=== PATIENT | female | born 1995 | race Two or more races ===

== ENCOUNTER → 2024-05-02 | Outpatient (CLI) | payer OTHER | END | disposition home or self-care (01) | LOC: XYW 10:41 | PROVIDERS: ATTEND Nurse Practitioner Family | DX: I51.89 Other ill-defined heart diseases (principal); R42 Dizziness and giddiness | CPT/HCPCS: 93306 ==

== ENCOUNTER → 2024-05-05 | Outpatient (CLI) | payer OTHER | END | disposition home or self-care (01) | LOC: XYW 07:51 → EDUNIT# 08:00 | DX: I26.99 Other pulmonary embolism without acute cor pulmonale (principal); R06.00 Dyspnea, unspecified | CPT/HCPCS: 78582; A9540; A9558 ==

== ENCOUNTER 2024-06-13 12:48 | Emergency (ER) | payer OTHER ==
[~2024-06-13] VITALS: Ht 172.7 cm; Wt 64.9 kg
[2024-06-13 14:44] LABS: Basophils # (auto) 0 10 ^3/uL (0-0.2); Basophils % (auto) 0.3 % (0.0-2.0); Eosinophils # (auto) 0.1 10 ^3/uL (0-0.8); Hematocrit 47.3 % (36.0-46.0); Hemoglobin 16.2 g/dL (12.2-16.2); Lymphocytes # (auto) 4.5 10 ^3/uL (0.4-5.4); Lymphocytes % (auto) 45.7 % (10.0-50.0); Mean Corpuscular Hemoglobin 32.1 pg (28.0-32.0); Mean Corpuscular Hgb Conc. 34.2 g/dL (32.0-36.0); Mean Corpuscular Volume 94.1 fL (80.0-100.0); Monocytes # (auto) 0.6 10 ^3/uL (0-1.3); Monocytes % (auto) 6.1 % (0.0-12.0); Neutrophils # (auto) 4.7 10 ^3/uL (1.6-8.6); Neutrophils % (auto) 46.9 % (37.0-80.0); Nucleated Red Blood Cells % 0.1 %; Red Blood Cells 5.03 10^6/uL (4.0-5.20); Red Cell Distribution Width 13.3 % (11.8-14.3)
[2024-06-13 15:02] LABS: Alanine Aminotransferase 45 U/L (7-40); Albumin 5.4 g/dL (3.2-4.8); Alkaline Phosphatase 108 U/L (46-116); Anion Gap 7 (5-15); Aspartate Aminotransferase 22 U/L (13-40); BUN/Creatinine Ratio 12.5 (10.0-20.0); Blood Urea Nitrogen 13 mg/dL (9-23); Calcium 10.3 mg/dL (8.7-10.4); Carbon Dioxide 27 mmol/L (20-30); Chloride 106 mmol/L (98-107); Glucose 81 mg/dL (74-106); Potassium 3.5 mmol/L (3.5-5.1); Sodium 140 mmol/L (136-145)
[2024-06-13 15:03] LABS: Bilirubin, Total 0.4 mg/dL (0.2-1.0); Total Protein 8.3 g/dL (5.7-8.2)
[2024-06-13 17:20] VITALS: TEMP 99
[2024-06-13 17:22] VITALS: PULSE 125; RESP 20; O2SAT 96
[2024-06-13 18:16] LABS: Urine Bacteria FEW /hpf (None Seen); Urine Blood Negative /uL (Negative); Urine Clarity Clear (Clear); Urine Color Yellow (Yellow); Urine Mucus FEW (None Seen); Urine Protein, UAD TRACE (Negative); Urine Specific Gravity 1.029 (1.001-1.035); Urine Urobilinogen 3 mg/dL (Negative); Urine WBC 3 /hpf (0 - 5)
[2024-06-13 20:33] VITALS: BP 153/86; PULSE 102; RESP 22; O2SAT 99
== END 2024-06-13 21:30 | disposition home or self-care (01) ==
LOC: ER 12:48
DX: K59.00 Constipation, unspecified (principal); R07.9 Chest pain, unspecified; R00.2 Palpitations; F41.9 Anxiety disorder, unspecified; R53.1 Weakness; Z88.6 Allergy status to analgesic agent; Z88.8 Allergy status to other drugs, medicaments and biological substances
CPT/HCPCS: 36415; 71046; 74018; 80053; 81001; 81025; 84443; 84484; 85025; 93005

== ENCOUNTER → 2024-06-24 | Outpatient (CLI) | payer OTHER ==
[~2024-06-24] MED LIST: IOHEXOL 350 MG/ML 100ML IJ ONE
[2024-06-24 11:25] VITALS: BP 131/79; PULSE 104; RESP 18; O2SAT 100
[2024-06-24 11:52] VITALS: BP 129/84; PULSE 95; RESP 18; O2SAT 100
== END | disposition home or self-care (01) ==
LOC: Rad HDHVI 11:08
PROVIDERS: ATTEND Internal Medicine Cardiovascular Disease
DX: R91.1 Solitary pulmonary nodule (principal); M19.09 Primary osteoarthritis, other specified site
CPT/HCPCS: 71260; G0463; Q9967

== ENCOUNTER 2024-07-25 20:06 | Emergency (ER) | payer SELFPAY ==
[~2024-07-25] VITALS: Ht 170.2 cm; Wt 64.5 kg
[2024-07-25 20:27] VITALS: BP 132/93; PULSE 110; RESP 16; O2SAT 98
[2024-07-25 20:54] LABS: Urine Bacteria None Seen /hpf (None Seen)
[2024-07-25 21:14] LABS: Urine Blood TRACE /uL (Negative); Urine Clarity Turbid (Clear); Urine Color Yellow (Yellow); Urine Mucus FEW (None Seen); Urine Protein, UAD 1+ (Negative); Urine Urobilinogen 2 mg/dL (Negative); Urine WBC 3 /hpf (0 - 5); Urine pH 6.5 (5.0-9.0)
[2024-07-25 21:20] LABS: Amphetamine Screen, Urine Neg (NEGATIVE); Barbiturate Scree,Urine Neg (NEGATIVE); Benzodiazephine Screen, Urine Neg (NEGATIVE); Cocaine Screen, Urine Neg (NEGATIVE); Opiate Scree,Urine Neg (NEGATIVE)
[2024-07-25 21:21] LABS: Phencyclidine Screen, Urine Neg (NEGATIVE)
[2024-07-25 21:35] LABS: Cannabinoid Screen, Urine Pos (NEGATIVE)
[2024-07-25] MEDS ORDERED: NITR-87 PO (23:08)
[2024-07-25] MEDS ORDERED: LEVO500T91 PO (23:27)
== END 2024-07-25 23:30 | disposition home or self-care (01) ==
LOC: ER 20:06
DX: N39.0 Urinary tract infection, site not specified (principal); F12.90 Cannabis use, unspecified, uncomplicated; Z79.899 Other long term (current) drug therapy; Z88.5 Allergy status to narcotic agent; Z88.8 Allergy status to other drugs, medicaments and biological substances
CPT/HCPCS: 74176; 80307; 81001; 81025

== ENCOUNTER 2024-11-07 18:10 | Inpatient (IN) | payer OTHER ==
[~2024-11-07] VITALS: Ht 152.4 cm; Wt 66.2 kg
[~2024-11-07 18:10] MED LIST changes: -IOHEXOL 350 MG/ML 100ML IJ ONE; +LEVO500T91 PO; +NITR-87 PO
--- NOTE | 2024-11-07 20:59 | ED.PDOC ---
General HPI Comments 29-year-old female presents to ER with complaints of flank pain x1 day. Patient reports that she woke up with right flank pain and associated n/v this morning. She rates her current pain a 9/10 to right flank with radiation towards pelvis. Patient present to fast track in wheelchair in mild distress. Denies fever, body aches, chills, abdominal pain, changes in urination/bm or any further symptoms/complaints Chief Complaint: Pelvic Pain Time Seen by MD: 18:43 Primary Care Provider: Unknown Reviewed notes: Nurses Notes, Medications, Allergies Allergies: Coded Allergies: Brexpiprazole (Verified Allergy, Unknown, 06/13/24) Buspirone (Verified Allergy, Unknown, 06/13/24) Diphenhydramine (Verified Allergy, Unknown, 06/13/24) Metronidazole (Verified Allergy, Unknown, 06/13/24) Morphine (Verified Allergy, Unknown, 06/13/24) Oxcarbazepine (Verified Allergy, Unknown, 06/13/24) Oxycodone (Verified Allergy, Unknown, 06/13/24) Uncoded Allergies: ADHESIVE (Allergy, Unknown, 06/13/24) Home Meds Active Scripts Levofloxacin Hemihydrate (LEVAQUIN 500 MG) 500 Mg Tab, 500 MG PO DAILY for 7 Days, #7 TAB Prov:CATHY BLACK MD 07/25/24 Nitrofurantoin Monohydrate Mac (Macrobid) 100 Mg Cap, 100 MG PO BID, #14 CAP Prov:CATHY BLACK MD 07/25/24 Information Source: Patient Mode of Arrival: Ambulatory Past Medical History PAST MEDICAL HISTORY: PE Past Medical History (Other): DDD, Maryan-Danlos syndrome, hepatomegaly, right kidney cyst, narcolepsy, scoliosis Surgical History: Denies all surgeries LIME BOILER History: Denies all LIME BOILER Hx Family History Family History: Unknown Social History Smoker: Non-Smoker Alcohol: Denies ETOH Use Drugs: Marijuana Lives In: Home Constitutional: denies: chills, diaphoresis, fatigue, fever, malaise, sweats, weakness, others EENTM: denies: blurred vision, double vision, ear bleeding, ear discharge, ear drainage, ear pain, ear ringing, eye pain, eye redness, hearing loss, mouth pain, mouth swelling, nasal discharge, nose bleeding, nose congestion, nose pain, photophobia, tearing, throat pain, throat swelling, voice changes, others Respiratory: denies: cough, hemoptysis, orthopnea, SOB at rest, shortness of breath, SOB with excertion, stridor, wheezing, others Cardiovascular: denies: chest pain, dizzy spells, diaphoresis, Dyspnea on exertion, edema, irregular heart beat, left arm pain, lightheadedness, palpitations, PND, syncope, others Gastrointestinal: reports: others (As stated in HPI) Genitourinary: reports: others (As stated in HPI) Neurological: denies: dizziness, fainting, headache, left sided numbness, left sided weakness, numbness, paresthesia, pre-existing deficit, right sided numbness, right sided weakness, seizure, speech problems, tingling, tremors, weakness, others Musculoskeletal: denies: back pain, gout, joint pain, joint swelling, muscle pain, muscle stiffness, neck pain, others Integumetry: denies: bruises, change in color, change in hair/nails, dryness, laceration, lesions, lumps, rash, wounds, others Allergic/Immunocompromised: denies: Difficulty Healing, Frequent Infections, Hives, Itching, others Hematologic/Lymphatic: denies: anemia, blood clots, easy bleeding, easy bruising, swollen glands, others Endocrine: denies: excessive hunger, excessive sweating, excessive thirst, excessive urination, flushing, intolerance to cold, intolerance to heat, unexplained weight gain, unexplained weight loss, others Psychiatric: denies: anxiety, bipolar disorder, depression, hopeless, panic disorder, schizophrenia, sleepless, suicidal, others Physical Exam General Appearance: Mild Distress (Due to CVA tenderness on right) HEENT: PERRL/EOMI Neck: Full Range of Motion, Non-Tender, Normal Respiratory: Chest Non-Tender, Lungs Clear, No Accessory Muscle Use, No Respiratory Distress, Normal Breath Sounds Cardiovascular: No Murmur, No Gallop, Regular Rate/Rhythm Breast Exam: Deferred Gastrointestinal: Non Tender (No TTP to abdomen/pelvic region noted), No Pu lsatile Mass, Soft Genitalia: Deferred Pelvic: Deferred Rectal: Deferred Extremities: Normal capillary refill, Normal range of motion Musculoskeletal : Extremity Location: Back (+ CVA tenderness on right) Neurologic: Alert, software asset management analyst II-XII nml as Tested, No Motor Deficits, Normal Affect, Normal Mood, No Sensory Deficits Cerebellar Function: Normal Reflexes: Normal Skin: Dry, Normal Color, Warm Peripheral Pulses: 2+ Radial (R), 2+ Radial (L), 2+ Brachial (R), 2+ Brachial (L) Lymphatic: No Adenopathy Was a procedure done? Was a procedure done?: No Sedation Sedation?: No Differential Diagnosis Kidney stone (Female): N/A Urinary Problem (Female): PID, Urinary retention, Urolithiasis, Other (Urosepsis) X-Ray, Labs, Meds, VS Vital Signs Date Time Temp Pulse Resp B/P (MAP) Pulse Ox O2 Delivery O2 Flow Rate FiO2 11/07/24 23:20 98.1 67 16 106/67 (80) 99 98.1 11/07/24 20:48 98.8 116 18 142/97 (112) 99 98.8 11/07/24 20:48 116 18 99 Room Air 11/07/24 18:30 98.2 130 18 160/93 (115) 97 Lab Test 11/07/24 23:35 11/07/24 21:34 11/07/24 21:12 11/07/24 20:54 Range/Units Lactic Acid Level 1.5 2.3 *H 0.4-2.0 mmol/L Urine Color Yellow Yellow Urine Clarity Turbid H Clear Urine pH 6.0 5.0-9.0 Urine Specific [place] 1.020 1.001-1.035 Urine Protein 1+ H Negative Urine Ketones 1+ H Negative Urine Blood Trace H Negative /uL Urine Nitrite Negative Negative Urine Bilirubin Negative Negative Urine Urobilinogen Normal Negative mg/dL Urine Leukocyte Esterase 1+ Negative /uL Urine RBC 11 0 - 4 /hpf Urine WBC 4 0 - 5 /hpf Urine Squamous Epithelial Cells Few <5 /hpf Urine Bacteria Few H None Seen /hpf Urine Hyaline Casts Few 0 - 2 /lpf Urine Mucus Few None Seen Urine Glucose Normal Normal mg/dL Urine Test Negative Negative White Blood Count 17.3 H 4.4-10.8 10^3/uL Red Blood Count 5.23 H 4.0-5.20 10^6/uL Hemoglobin 16.9 H 12.2-16.2 g/dL Hematocrit 50.3 H 36.0-46.0 % Mean Corpuscular Volume 96.3 80.0-100.0 fL Mean Corpuscular Hemoglobin 32.3 H 28.0-32.0 pg Mean Corpuscular Hemoglobin Concent 33.5 32.0-36.0 g/dL Red Cell Distribution Width 13.3 11.8-14.3 % Platelet Count 312 140-450 10^3/uL Mean Platelet Volume 7.6 6.9-10.8 fL Neutrophils (%) (Auto) 93.3 H 37.0-80.0 % Lymphocytes (%) (Auto) 3.9 L 10.0-50.0 % Monocytes (%) (Auto) 2.7 0.0-12.0 % Eosinophils (%) (Auto) 0.0 0.0-7.0 % Basophils (%) (Auto) 0.1 0.0-2.0 % Neutrophils # (Auto) 16.1 H 1.6-8.6 10 ^3/uL Lymphocytes # (Auto) 0.7 0.4-5.4 10 ^3/uL Monocytes # (Auto) 0.5 0-1.3 10 ^3/uL Eosinophils # (Auto) 0 0-0.8 10 ^3/uL Basophils # (Auto) 0 0-0.2 10 ^3/uL Nucleated Red Blood Cells 0.3 % Sodium Level 142 136-145 mmol/L Potassium Level 4.1 3.5-5.1 mmol/L Chloride Level 108 H 98-107 mmol/L Carbon Dioxide Level 25 20-31 mmol/L Anion Gap 9 5-15 Blood Urea Nitrogen 9 9-23 mg/dL Creatinine 1.06 H 0.550-1.02 mg/dL Glomerular Filtration Rate Calc 73 >90 mL/min BUN/Creatinine Ratio 8.5 L 10.0-20.0 Serum Glucose 101 74-106 mg/dL Calcium Level 10.2 8.7-10.4 mg/dL Current Medications Medications (Trade) Dose Ordered Sig/Stuart Route Start Time Stop Time Status Last Admin Metoclopramide HCl (Reglan Injection) 10 mg ONCE ONCE IM 11/07/24 21:00 11/07/24 21:01 DC 11/07/24 21:09 Acetaminophen/ Codeine Phosphate (Tylenol W/Cod #3 Tablet) 1 tab ONCE ONCE PO 11/07/24 21:00 11/07/24 21:01 DC 11/07/24 21:09 Sodium Chloride 1,000 ml @ 1,000 mls/hr Q1H ONCE IV 11/07/24 21:30 11/07/24 22:29 DC 11/07/24 21:33 Ceftriaxone Sodium (Rocephin) 1,000 mg ONCE ONCE IM 11/07/24 21:45 11/07/24 21:46 DC 11/07/24 22:04 Sodium Chloride 1,000 ml @ 1,000 mls/hr Q1H ONCE IV 11/07/24 22:30 11/07/24 23:29 DC 11/07/24 22:38 PATIENT: IZA BAILEY ACCT: [id number] UNIT: [id number] : 1995 LOC: ER ROOM / BED: / AGE / SEX: 29 / F ADM STATUS: REG ER SERVICE 23 ORDERING PHYSICIAN: YAW BROWN PROCEDURE(s): ABPL - CT AB PEL WO CON-NO ORAL OR IV REASON: right flank pain ORDER NUMBER(s): [id number], ACCESSION NUMBER(s): [id number] CLINICAL HISTORY: right flank pain TECHNIQUE: CT of the abdomen and pelvis was performed without intravenous contrast. This exam was performed according to our departmental dose optimization program. Up-to-date CT equipment and radiation dose reduction techniques are utilized as appropriate. [Radimetrics Exposure Report] CTDI: [CTDIvol] DLP: 305.57 WID: COMPARISON: CT CT AB PEL WO CON-NO ORAL OR IV on DOS: 07/25/24 FINDINGS: Lower Thorax: Unchanged sub 5 mm nodule in the right lower lobe on series 3, image 22 lung bases otherwise clear. Normal-sized heart. Liver and Biliary system: Unremarkable. Spleen: Unremarkable. Adrenal Glands and Kidneys: Unremarkable. Pancreas and Retroperitoneum: Unremarkable. Aorta and Major Vessels: Unremarkable. Bowel, Mesentery and Peritoneal space: Normal caliber small and large bowel. Normal appendix. No free air or fluid collection. Mild wall thickening of the large bowel although underdistended. Pelvis: Unremarkable. Abdominal wall and Osseous Structures: No destructive osseous lesion. IMPRESSION: 1. Mild wall thickening of the large bowel which may be in part due to underdistention versus infectious or inflammatory colitis. 2. Unchanged sub 5 mm nodule in the right lower lobe which may be postinfectious or inflammatory ATED BY: CRISTIANO BIHSOP MD DICTATED DATE/TIME: 11/07/242305 SIGNED BY: CRISTIANO BISHOP MD SIGNED DATE/TIME: 11/07/242305 CC: CBC reviewed - WBC 17.3 BMP reviewed without any significant abnormalities Urinalysis reviewed-urine leukocyte esterase 1+, urine blood trace, urine nitrites negative Urine reviewed-negative Hep-Lock IV ordered Reglan 10 mg IM ordered Tylenol # 3 one tablet p.o. ordered Rocephin 1 g IV ordered NS 1 Liter IV ordered NS [address] abdomen/pelvis without contrast reviewed Previous charts reviewed Lactic acid 2.3 reviewed Repeat lactic acid ordered Patient admitted to hospitalist for pyelonephritis and need for IV antibiotics Images Reviewed?: Images reviewed and evaluated by me Time of 1ST Reevaluation: 20:52 Reevaluation 1ST: N/A Patient Education/Counseling: Diagnosis, Treatment, Prognosis, Need For Follow Up Family Education/Counseling: No Family Present Departure 1 Departure Time of Disposition: 23:42 Impression: Primary Impression: Pyelonephritis Additional Impression: Colitis Disposition: 09 ADMITTED INPATIENT Condition: Stable Critical Care Note Critical Care Time?: No Stability Stability form required: No Heart Score Heart Score: Heart Score Response (Comments) Value History N/A 0 EKG N/A 0 Age N/A 0 Risk Factors N/A 0 Troponin N/A 0 Total 0 YAW BROWN Nov 07, 2024 20:59
[2024-11-07] MEDS: ACETAMINOPHEN/CODEINE#3 (300/30mg) TAB PO ONE (21:09)
[2024-11-07] MEDS: METOCLOPRAMIDE HCL 5MG/ml INJ 2ml VIAL IM ONE (21:09)
[2024-11-07 21:12] LABS: Basophils # (auto) 0 10 ^3/uL (0-0.2); Basophils % (auto) 0.1 % (0.0-2.0); Eosinophils # (auto) 0 10 ^3/uL (0-0.8); Hematocrit 50.3 % (36.0-46.0); Hemoglobin 16.9 g/dL (12.2-16.2); Lymphocytes # (auto) 0.7 10 ^3/uL (0.4-5.4); Lymphocytes % (auto) 3.9 % (10.0-50.0); Mean Corpuscular Hemoglobin 32.3 pg (28.0-32.0); Mean Corpuscular Hgb Conc. 33.5 g/dL (32.0-36.0); Mean Corpuscular Volume 96.3 fL (80.0-100.0); Monocytes # (auto) 0.5 10 ^3/uL (0-1.3); Monocytes % (auto) 2.7 % (0.0-12.0); Neutrophils # (auto) 16.1 10 ^3/uL (1.6-8.6); Neutrophils % (auto) 93.3 % (37.0-80.0); Nucleated Red Blood Cells % 0.3 %; Platelet Count (auto) 312 10^3/uL (140-450); Red Blood Cells 5.23 10^6/uL (4.0-5.20); Red Cell Distribution Width 13.3 % (11.8-14.3); White Blood Cell 17.3 10^3/uL (4.4-10.8)
[2024-11-07 21:16] LABS: Potassium 4.1 mmol/L (3.5-5.1); Sodium 142 mmol/L (136-145)
[2024-11-07 21:17] LABS: Anion Gap 9 (5-15); Calcium 10.2 mg/dL (8.7-10.4); Carbon Dioxide 25 mmol/L (20-31)
[2024-11-07 21:20] LABS: Urine Bacteria FEW /hpf (None Seen); Urine Blood TRACE /uL (Negative); Urine Clarity Turbid (Clear); Urine Color Yellow (Yellow); Urine Hyaline Cast FEW /lpf (0 - 2); Urine Mucus FEW (None Seen); Urine Protein, UAD 1+ (Negative); Urine Squamous Epithelial Cell FEW /hpf (<5); Urine Urobilinogen Normal (Negative); Urine WBC 4 /hpf (0 - 5)
[2024-11-07 21:22] LABS: BUN/Creatinine Ratio 8.5 (10.0-20.0); Glucose 101 mg/dL (74-106)
[2024-11-07 21:25] LABS: Blood Urea Nitrogen 9 mg/dL (9-23); Chloride 108 mmol/L (98-107)
[2024-11-07] MEDS: SODIUM CHLORIDE 0.9% 1,000 ML IV ONE ×2 (21:33→22:38)
[2024-11-07] MEDS: cefTRIAXone SOD 1,000 MG VL IM ONE (22:04)
[2024-11-07 22:06] LABS: Lactic Acid w/Reflex 2.3 mmol/L (0.4-2.0)
--- NOTE | 2024-11-07 23:09 | DVH ---
CLINICAL HISTORY: right flank pain TECHNIQUE: CT of the abdomen and pelvis was performed without intravenous contrast. This exam was per formed according to our departmental dose optimization program. Up-to-date CT equipment and radiation dose reduction techniques are utilized as appropriate. [Radimetrics Exposure Report] CTDI: [CTDIvol] DLP: 305.57 WID: COMPARISON: CT CT AB PEL WO CON-NO ORAL OR IV on DOS: 07/25/24 FINDINGS: Lower Thorax: Unchanged sub 5 mm nodule in the right lower lobe on series 3, image 22 lung bases othe rwise clear. Normal-sized heart. Liver and Biliary system: Unremarkable. Spleen: Unremarkable. Adrenal Glands and Kidneys: Unremarkable. Pancreas and Retroperitoneum: Unremarkable. Aorta and Major Vessels: Unremarkable. Bowel, Mesentery and Peritoneal space: Normal caliber small and large bowel. Normal appendix. No sushant e air or fluid collection. Mild wall thickening of the large bowel although underdistended. Pelvis: Unremarkable. Abdominal wall and Osseous Structures: No destructive osseous lesion. IMPRESSION: 1. Mild wall thickening of the large bowel which may be in part due to underdistention versus infecti ous or inflammatory colitis. 2. Unchanged sub 5 mm nodule in the right lower lobe which may be postinfectious or inflammatory
[2024-11-08] VITALS (7 sets, daily range): BP systolic 109–159; BP diastolic 76–105; PULSE 68–102; RESP 12–19; TEMP 98.5–99.6; O2SAT 96–98
--- NOTE | 2024-11-08 02:00 | DVHHPRES ---
History of Present Illness Resident Creating Document: JUSTINO CONRADED RESIDENT History of Present Illness Patient is a 29-year-old female with a past medical history as described below came to the ED with a chief complaint of right-sided pain which started earlier this morning. Patient reported that she was apparently well 3-4 days ago when she started having diarrhea with the multiple episodes of loose watery stools, brown-orangish in color no blood,had mild abdominal pain in the right lower quadrant, no associated fever, chills, recent antibiotic use, eating out of the normal. Patient reports that yesterday morning she woke up with severe right- sided hip which worsened throughout the day and in the evening it got to the point where she felt that she was to faint because of severe pain and since then has been having some difficulty with balance and walking. Patient denied recent weight loss, fevers, night sweats. Since the evening after 5:00 p.m. she has nausea with 2-3 episodes vomiting frothy yellow, no blood in vomitus. 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 Family History: Marfan syndrome in father Home medications: Eliquis 5 mg b.i.d., guanfacine, progesterone, nurtec Review of Systems Review of Systems Patient seen and examined at bedside Reports mild right hip pain. Denies current nausea, vomiting, diarrhea, abdominal pain. Reports that her last bowel movement was at noon. Has some difficulty with the balance on walking Allergies: Coded Allergies: Brexpiprazole (Verified Allergy, Unknown, 06/13/24) Buspirone (Verified Allergy, Unknown, 06/13/24) Diphenhydramine (Verified Allergy, Unknown, 06/13/24) Metronidazole (Verified Allergy, Unknown, 06/13/24) Morphine (Verified Allergy, Unknown, 06/13/24) Oxcarbazepine (Verified Allergy, Unknown, 06/13/24) Oxycodone (Verified Allergy, Unknown, 06/13/24) Uncoded Allergies: ADHESIVE (Allergy, Unknown, 06/13/24) Medications Current Medications Medications Dose Ordered Sig/Stuart Route Start Time Stop Time Status Last Admin Dose Admin Piperacillin Sod/ Tazobactam Sod 100 ml @ 25 mls/hr Q8HR IV 11/08/24 06:00 Ondansetron HCl 4 mg Q4HPRN PRN IV 11/08/24 01:15 Acetaminophen/ Codeine Phosphate 1 tab Q6HP PRN PO 11/08/24 01:15 Exam Vital Signs Vital Signs Date Time Temp Pulse Resp B/P (MAP) Pulse Ox O2 Delivery O2 Flow Rate FiO2 11/07/24 23:20 98.1 67 16 106/67 (80) 99 98.1 11/07/24 20:48 Room Air Exam Physical Examination Constitutional: Patient sitting comfortably in bed without any acute distress Gen - no pallor, no icterus, no cyanosis, no clubbing, no LAD, no edema . Skin - Patients skin is warm and dry. HEENT - normocephalic, atraumatic, dry mucous membranes. Neck - full ROM, no LAD, no JVD Pulmonary - B/L vesicular breath sounds. no crackles , no wheezing, no stridor. cardiovascular - normal S1,S2 heard. no murmurs heard. peripheral pulses radial 2+, pedal 2+. capillary refill normal <2 secs. GI - soft abdomen with tenderness to palpation in the right and the left lower quadrants. no hepatospleenomegaly. Bowel sounds normoactive Extremities: Bilateral lower extremity strength 5/5, bilateral upper extremity strength 5/5, hyperextensible thumbs and hands Neurological - Patient is A/O X 3, no facial droop, normal speech, no tremor, no sensory deficiets. Labs/Xrays Labs Test 11/07/24 23:35 11/07/24 21:12 11/07/24 20:54 Range/Units Lactic Acid Level 1.5 0.4-2.0 mmol/L Urine Color Yellow Yellow Urine Clarity Turbid H Clear Urine pH 6.0 5.0-9.0 Urine Specific [place] 1.020 1.001-1.035 Urine Protein 1+ H Negative Urine Ketones 1+ H Negative Urine Blood Trace H Negative /uL Urine Nitrite Negative Negative Urine Bilirubin Negative Negative Urine Urobilinogen Normal Negative mg/dL Urine Leukocyte Esterase 1+ Negative /uL Urine RBC 11 0 - 4 /hpf Urine WBC 4 0 - 5 /hpf Urine Squamous Epithelial Cells Few <5 /hpf Urine Bacteria Few H None Seen /hpf Urine Hyaline Casts Few 0 - 2 /lpf Urine Mucus Few None Seen Urine Glucose Normal Normal mg/dL Urine Test Negative Negative White Blood Count 17.3 H 4.4-10.8 10^3/uL Red Blood Count 5.23 H 4.0-5.20 10^6/uL Hemoglobin 16.9 H 12.2-16.2 g/dL Hematocrit 50.3 H 36.0-46.0 % Mean Corpuscular Volume 96.3 80.0-100.0 fL Mean Corpuscular Hemoglobin 32.3 H 28.0-32.0 pg Mean Corpuscular Hemoglobin Concent 33.5 32.0-36.0 g/dL Red Cell Distribution Width 13.3 11.8-14.3 % Platelet Count 312 140-450 10^3/uL Mean Platelet Volume 7.6 6.9-10.8 fL Neutrophils (%) (Auto) 93.3 H 37.0-80.0 % Lymphocytes (%) (Auto) 3.9 L 10.0-50.0 % Monocytes (%) (Auto) 2.7 0.0-12.0 % Eosinophils (%) (Auto) 0.0 0.0-7.0 % Basophils (%) (Auto) 0.1 0.0-2.0 % Neutrophils # (Auto) 16.1 H 1.6-8.6 10 ^3/uL Lymphocytes # (Auto) 0.7 0.4-5.4 10 ^3/uL Monocytes # (Auto) 0.5 0-1.3 10 ^3/uL Eosinophils # (Auto) 0 0-0.8 10 ^3/uL Basophils # (Auto) 0 0-0.2 10 ^3/uL Nucleated Red Blood Cells 0.3 % Sodium Level 142 136-145 mmol/L Potassium Level 4.1 3.5-5.1 mmol/L Chloride Level 108 H 98-107 mmol/L Carbon Dioxide Level 25 20-31 mmol/L Anion Gap 9 5-15 Blood Urea Nitrogen 9 9-23 mg/dL Creatinine 1.06 H 0.550-1.02 mg/dL Glomerular Filtration Rate Calc 73 >90 mL/min BUN/Creatinine Ratio 8.5 L 10.0-20.0 Serum Glucose 101 74-106 mg/dL Calcium Level 10.2 8.7-10.4 mg/dL Assessment/Plan Assessment/Plan Assessment # Sepsis likely due to colitis # SIRS positive # acute colitis likely infectious # UTI likely acute cystitis # H/o IBS # h/o osteoarthritis, degenerative disc disease # h/o Maryan-Danlos syndrome, pelvic floor dysfunction with stress urinary incon tinence # h/o PE (august 2023) Plan - CT abdomen pelvis without contrast shows mild thickening of the large bowel wall - elevated WBC count 17.3 with a left shift - lactic acid 2.3, trending down - UA shows LE 1+, few bacteria - stool WBC, cultures, occult blood pending - blood culture pending - urine culture pending - patient given IV fluids 2 L NS bolus, on 150 mL/hour NS - given ceftriaxone 1 g IV - on Zosyn 3.375 g q.8 hours ( patient is allergic to metronidazole) - Eliquis 5 mg b.i.d. - Zofran p.r.n. for nausea - acetaminophen/codeine p.r.n. for pain Goals of care discussed with the patient for over 25 minutes. Full code Plan discussed with Dr. García Plan discussed with: Patient My Orders Orders - DARLENE CONRAD RESIDENT Procedure Category Date Status Time Admit ADMIT 11/08/24 Transmitted 01:02 Stat Ekg For Chest JOSE 11/08/24 In Process Pain 01:02 Emergency Dysrhythmia JOSE 11/08/24 In Process Protocol 01:02 Comprehensive LAB 11/08/24 Logged Metabolic Panel 01:04 Basic Metabolic Panel LAB 11/08/24 Logged 04:00 Complete Blood Count LAB 11/08/24 Logged 04:00 Stool Occult Blood LAB 11/08/24 Logged 01:04 Stool Bacterial SHIVA 11/08/24 Logged Culture 01:04 Stool Wbc LAB 11/08/24 Logged 01:04 Urine Bacterial SHIVA 11/08/24 In Process Culture 01:04 Chest Xray 1 View XY 11/08/24 Logged 01:04 Sodium Chloride 0.9% PHA 11/08/24 In Process 01:15 Piperacillin-Tazob PHA 11/08/24 In Process 3.375gm (Zosyn 3.375g 06:00 Ondansetron Hcl PHA 11/08/24 In Process (Zofran) 01:15 Acetaminophen/Codeine PHA 11/08/24 In Process Tablet (Tylenol W/ 01:15 Covid19 Antigen [facility] 11/08/24 Logged Rapid Influenza A&B LAB 11/08/24 Logged 01:04 Code Status CODE 11/08/24 Transmitted 01:33 Date of Service: Nov 08, 2024 Billing Provider: MAX GARCÍA MD Common Visit Codes: [id number] INP/OBS CARE (HIGH) Secondary Visit Codes: 01167-[id number] CARE PLAN 30 MINUTES DARLENE CONRAD RESIDENT Nov 08, 2024 02:00 MAX GARCÍA MD Nov 08, 2024 17:22
[2024-11-08 02:25] LABS: Phencyclidine Screen, Urine Neg (NEGATIVE)
[2024-11-08 02:39] LABS: Amphetamine Screen, Urine Neg (NEGATIVE); Barbiturate Scree,Urine Neg (NEGATIVE); Benzodiazephine Screen, Urine Neg (NEGATIVE); Cannabinoid Screen, Urine Pos (NEGATIVE); Cocaine Screen, Urine Neg (NEGATIVE); Opiate Scree,Urine Neg (NEGATIVE)
[2024-11-08 02:49] LABS: Alanine Aminotransferase 76 U/L (7-40); Albumin 4.2 g/dL (3.2-4.8); Alkaline Phosphatase 82 U/L (46-116); Anion Gap 8 (5-15); Aspartate Aminotransferase 38 U/L (13-40); BUN/Creatinine Ratio 10.1 (10.0-20.0); Bilirubin, Total 0.4 mg/dL (0.2-1.0); Blood Urea Nitrogen 7 mg/dL (9-23); Calcium 8.6 mg/dL (8.7-10.4); Carbon Dioxide 23 mmol/L (20-31); Chloride 110 mmol/L (98-107); Glucose 88 mg/dL (74-106); Sodium 141 mmol/L (136-145); Total Protein 6.4 g/dL (5.7-8.2)
[2024-11-08 03:35] LABS: Potassium 3.7 mmol/L (3.5-5.1); Sodium 140 mmol/L (136-145)
[2024-11-08 03:36] LABS: Anion Gap 6 (5-15); Carbon Dioxide 23 mmol/L (20-31)
[2024-11-08 03:41] LABS: BUN/Creatinine Ratio 7.2 (10.0-20.0); Glucose 79 mg/dL (74-106)
[2024-11-08 03:47] LABS: Blood Urea Nitrogen 6 mg/dL (9-23); Calcium 8.5 mg/dL (8.7-10.4); Chloride 111 mmol/L (98-107)
[2024-11-08 04:22] LABS: Basophils # (auto) 0 10 ^3/uL (0-0.2); Basophils % (auto) 0.1 % (0.0-2.0); Eosinophils # (auto) 0 10 ^3/uL (0-0.8); Hematocrit 39.7 % (36.0-46.0); Hemoglobin 13.5 g/dL (12.2-16.2); Lymphocytes # (auto) 0.9 10 ^3/uL (0.4-5.4); Lymphocytes % (auto) 11.7 % (10.0-50.0); Mean Corpuscular Hemoglobin 32.8 pg (28.0-32.0); Mean Corpuscular Hgb Conc. 33.9 g/dL (32.0-36.0); Mean Corpuscular Volume 96.6 fL (80.0-100.0); Monocytes # (auto) 0.1 10 ^3/uL (0-1.3); Monocytes % (auto) 1.9 % (0.0-12.0); Neutrophils # (auto) 6.6 10 ^3/uL (1.6-8.6); Neutrophils % (auto) 86.3 % (37.0-80.0); Nucleated Red Blood Cells % 0.1 %; Platelet Count (auto) 258 10^3/uL (140-450); Red Blood Cells 4.11 10^6/uL (4.0-5.20); Red Cell Distribution Width 13.2 % (11.8-14.3); White Blood Cell 7.6 10^3/uL (4.4-10.8)
[2024-11-08] MEDS: SODIUM CHLORIDE 0.9% 1,000 ML IV ONE (05:26)
[2024-11-08] MEDS: ACETAMINOPHEN/CODEINE#3 (300/30mg) TAB PO PRN (05:29)
[2024-11-08] MEDS: PIPERACILLIN-TAZOB 3.375GM 100 ML IV SCH (05:45)
--- NOTE | 2024-11-08 06:15 | DVH ---
CHEST RADIOGRAPH Indication: SOB Technique: Single frontal view of the chest was obtained Comparison: None FINDINGS: Lines and Tubes: None Lungs: No focal consolidation. Pleura: No effusion. No pneumothorax. Cardiomediastinal contours: Unremarkable Bones: No acute osseous abnormality. IMPRESSION: 1. No acute cardiopulmonary disease.
[2024-11-08 07:26] LABS: Rapid Influenza A Negative (Negative); Rapid Influenza B Negative (Negative)
[2024-11-08 07:27] LABS: COVID19 ANTIGEN SOFIA FIA NEGATIVE (NEGATIVE)
[2024-11-08] MEDS: APIXABAN 5 MG TAB PO SCH (09:15)
[2024-11-08] MEDS ORDERED: RIME75TA PO (11:58)
--- NOTE | 2024-11-08 12:12 | DVHPNRES ---
Progress Note Date Seen: Nov 08, 2024 Resident Creating Document: WILMER DUARTE Has the PT tested + for MRSA If YES, has PT been informed?: No Medical Necessity Reason Pt with a Central, PICC or Fol: No Subjective Review of Systems The patient is a 29-year-old female with a past medical history as described below. She came to the ED with a chief complaint of right-sided pain that started earlier this morning. The patient reported that she was apparently well 3-4 days ago when she started having diarrhea with multiple episodes of loose, watery stools, brown-orangish in color, without blood. She had mild abdominal pain in the right lower quadrant, with no associated fever, chills, recent antibiotic use, or eating out of the ordinary. The patient reports that yesterday morning she woke up with severe right-sided hip pain, which worsened throughout the day. By the evening, the pain was so severe that she felt faint, and since then, she has had some difficulty with balance and walking. The patient denied recent weight loss, fevers, or night sweats. Since the evening after 5:00 p.m., she has had nausea with 2-3 episodes of frothy yellow vomiting, without blood in the vomitus. 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 Home medication: Eliquis 5 mg b.i.d., guanfacine, progesterone, nurtec Allergic history: Adhesive, Buspirone, diphenhydramine, metronidazole, morphine, oxcarbazepine, oxycodone Today, patient seen and examined at the bedside. Patient is feeling better since admission. Patient is no vomiting at the moment. Patient reports: No new complaints, Feels better Changes from previous H/P or p: No Changes Objective vital signs Vital Sign Date Time Temp Pulse Resp B/P (MAP) Pulse Ox O2 Delivery O2 Flow Rate FiO2 11/08/24 10:25 98.9 75 16 126/76 (93) 98 98.9 11/08/24 07:30 Room Air* 0 21 Total Intake and Output 11/07/24 11/07/24 11/08/24 15:00 23:00 07:00 Intake Total 1000 ml 1175 ml Balance 1000 ml 1175 ml medications Current Medications Medications Dose Ordered Sig/Stuart Route Start Time Stop Time Status Last Admin Dose Admin Piperacillin Sod/ Tazobactam Sod 100 ml @ 25 mls/hr Q8HR IV 11/08/24 06:00 11/08/24 05:45 25 MLS/HR Ondansetron HCl 4 mg Q4HPRN PRN IV 11/08/24 01:15 Acetaminophen/ Codeine Phosphate 1 tab Q6HP PRN PO 11/08/24 01:15 11/08/24 05:29 1 TAB Apixaban 5 mg BID PO 11/08/24 10:00 11/08/24 09:15 5 MG Examination General Appearance: Alert, Oriented X3, Cooperative, No acute distress HEENT: Atraumatic, PERRLA, EOMI, Mucous membrane moist/pink Respiratory: Clear to auscultation, Normal air movement Cardiovascular: Regular rate, Normal S1, Normal S2, No murmurs, no chest wall tenderness Abdominal: Normal bowel sounds, Soft, No tenderness, No hepatospenomegaly, No masses Extremities: Hypermobile joints Skin: Hyperextensible skin Neuro: Normal gait, Normal speech, Strength at 5/5 X4 ext, Normal tone, Sensation intact, Cranial nerves 3-12 NL, Reflexes 2+ Psych/Mental Status: Mental status NL, Mood NL laboratory and microbiology Laboratory Tests 11/08/24 03:10 Test 11/08/24 03:10 Range/Units Serum Glucose 79 74-106 mg/dL Labs and/or images reviewed: Labs reviewed by me, Image(s) reviewed by me Problem List/Assessment/Plan Problem List/Assessment/Plan # sepsis, likely due to colitis/UTI # Acute colitis, likely due to bacteria/viral Abdominal CT scan, shows mild wall thickening of the large bowel which may be in part due to underdistention versus infectious or inflammatory colitis Check stool culture, stool WBC WBCs raised at 7:20 a.m. 0.3, lactic acid is 2.3 Injection ceftriaxone IV fluid #Syncope, likely orthostatic patent lost consciousness for few second and regained full consciousness upon waking up Echo # UTI, unspecified location Urinalysis shows UTI picture Urine culture Injection ceftriaxone #Pulmonary nodule CT scan shows, unchanged sub 5 mm nodule in the right lower lobe which may be postinfectious or inflammatory Outpatient follow up #Hyperkalemia, monitoring #Has history of Maryan-Danlos syndrome #Has a history of irritable bowel syndrome #Has history of degenerative disc disorder and osteoarthritis of low back and neck, continue neurotic #Has history of stress urinary continence, and pelvic floor dysfunction #Dysmenorrhea, continue progesterone #History of migraine, and ADH , #History of OCD, #History of pulmonary embolism, on September 04, 2023, continue Eliquis 5 mg b.i.d. DIET: Clear liquid diet DVT PROPHYLAXIS: Patient is on Eliquis GI PROPHYLAXIS:: Protonix is not indicated BOWEL REGIMEN: Patient has diarrhea, no indication for the laxative CODE STATUS: Code status discussed for more than 20 minutes, full code DISPOSITION: Med surge Patient's status discussed with patient. Case discussed with Dr. Ignacio. Plan discussed with: Patient, Other (RN) Date of Service: Nov 08, 2024 Billing Provider: MAX IGNACIO MD Common Visit Codes: [id number] INP/OBS CARE(HIGH) WILMER DUARTE RESDIDEMI Nov 08, 2024 12:12 MAX IGNACIO MD Nov 08, 2024 17:27
[2024-11-08] MEDS: ALPRAZolam 0.5 MG TAB PO PRN (16:05)
[2024-11-08] MEDS: PHENAZOPYRIDINE HCL 100 MG TAB PO ONE (16:23)
[2024-11-08 17:03] LABS: Free T3 3.22 pg/mL (2.3-4.2); Free T4 (Free Thyroxine) 1.26 ng/dL (0.89-1.76)
[2024-11-08] MEDS ORDERED: FLUV100T15 PO (19:36)
[2024-11-08] MEDS ORDERED: GUAN1TAB23 PO (19:38)
[2024-11-09] VITALS (8 sets, daily range): BP systolic 113–165; BP diastolic 73–110; PULSE 65–107; RESP 18–20; TEMP 97.9–98.4; O2SAT 96–100
[2024-11-09] MEDS ORDERED: KETOROLAC TROMETH 30 MG/ML 1ML VIAL IV ONE (00:45)
[2024-11-09] MEDS ORDERED: PATIENTS OWN MEDICATION PO SCH ×4 (00:45→18:00)
[2024-11-09] MEDS ORDERED: FLUVOXAMINE 100 MG PO SCH ×2 (01:00→10:00)
[2024-11-09] MEDS ORDERED: GUANFACINE HCL 4 MG PO SCH ×2 (01:00→10:00)
[2024-11-09] MEDS: HYDROmorphone HCL 2 MG/ML VL/or syr IV ONE (01:30)
[2024-11-09] MEDS ORDERED: MORPHINE SULFATE INJ 2 MG/ml SYRG IV PRN (07:00)
[2024-11-09] MEDS ORDERED: HYDROcodone-ACET 5/325MG TAB PO PRN ×2 (07:00)
[2024-11-09 07:03] LABS: Anion Gap 9 (5-15); Carbon Dioxide 24 mmol/L (20-31); Sodium 143 mmol/L (136-145)
[2024-11-09 07:05] LABS: Calcium 9.5 mg/dL (8.7-10.4)
[2024-11-09 07:09] LABS: BUN/Creatinine Ratio 5.6 (10.0-20.0); Glucose 90 mg/dL (74-106)
[2024-11-09 07:10] LABS: Blood Urea Nitrogen 6 mg/dL (9-23); Chloride 110 mmol/L (98-107)
--- NOTE | 2024-11-09 08:28 | DVHINCON2 ---
REASON FOR CONSULTATION: Pelvic pain. HISTORY OF PRESENT ILLNESS: The patient is a 29-year-old 0, para 0 female admitted for flank pain, nausea, vomiting. The patient has a history of PE. The patient states she is on control pills to regulate her periods. She has no period according to her. She is not sexually active, according to the patient. Her CT is negative. At the time of this consultation, the patient had a migraine headache and did not want to be examined. PAST MEDICAL HISTORY: ADHD, right kidney cyst, scoliosis, narcolepsy, degenerative disk disease, IBS, Maryan-Danlos syndrome and PE. PAST SURGICAL HISTORY: None. FAMILY HISTORY: None. REVIEW OF SYSTEMS: CONSTITUTIONAL: Denies chills, diaphoresis, fever. RESPIRATORY: Denies cough, hemoptysis. CARDIOVASCULAR: Denies chest pain, dizzy spell. NEUROLOGICAL: Denies dizziness. GASTROINTESTINAL: Positive for abdominal pain, nausea, vomiting, diarrhea. GENITOURINARY: No dysuria, no vaginal bleeding. MUSCULOSKELETAL: Denies back pain. ENDOCRINE: Denies excessive hunger or sweating. PSYCHIATRIC: Denies anxiety, bipolar. PHYSICAL EXAMINATION: VITAL SIGNS: Stable, afebrile. The patient is refusing any examination. She did not want to cooperate much during her history. IMPRESSION: Pelvic pain. In view of normal CT, I do not recommend any further intervention. PLAN: I have advised the patient to follow up on an outpatient basis. The patient agreed. We will sign off. Thank you very much for this consultation. Dina Hodges DO MZ/SAY TID: [id number] RECEIPT: [id number]
[2024-11-09] MEDS ORDERED: cefTRIAXone 1GM/50ML D5W 50 ML IV SCH (09:00)
[2024-11-09] MEDS: PHENAZOPYRIDINE HCL 100 MG TAB PO SCH (09:18)
[2024-11-09] MEDS ORDERED: KETOROLAC TROMETH 30 MG/ML 1ML VIAL IV PRN (10:00)
[2024-11-09] MEDS ORDERED: HYDROmorphone HCL 2 MG TAB PO PRN (10:15)
[2024-11-09] MEDS: FLUVOXAMINE 100 MG PO SCH ×2 (11:00→18:23)
--- NOTE | 2024-11-09 11:25 | DVHSR ---
APPROVED REPORT EXAM: Two-dimensional and M-mode echocardiogram with Doppler and color Doppler. Blood Pressure: 126/76 mmHg INDICATION echo RISK FACTORS Height: 5'0, Weight: 138 DIMENSIONS LVDd4.0 (3.8-5.7cm)LA (2D)3.8 (1.9-4.0cm)Aortic Root2.0 (2.0-3.7cm) LVDs2.7 (2.5-4.0cm)LA (MM) (1.9-4.0cm)Aortic Cusp Exc1.8 (1.5-2.0cm) EF (%) 60.0 (55-70%)Rt. Atrium2.8 (1.9-4.0cm)Asc. Aorta2.7 cm IVSd0.8 (0.7-1.1cm)RV (D) (1.8-2.4cm) PWd0.9 (0.7-1.1cm) Mitral Valve MitralMitral Stenosis E wave0.82m/sMV Mean GR.mmHg A wave0.45m/sMV Peak GR.43mmHg E/A ratio1.82D MVAcm2 DECEL [id number] 1/2 Timems Aortic Valve Aortic ValveAortic Stenosis V10.89m/Eyad Mean GR.3mmHg V21.17m/Eyad Peak GR.5mmHg LVOT Diameter1.8 (1.8-2.4cm)Doppler AVA1.93cm2 Pulmonic Valve V20.88m/s Conclusion Normal left ventricular size and dimension. Normal left ventricular systolic function estimated ejec tion fraction 60%. Normal diastolic function. Normal right ventricular size and dimension. Normal right ventricular systolic function. Normal biatrial size and dimension. Normal aortic valve structure and function. Normal mitral valve structure and function. Normal tricuspid valve structure and function. The pulmonary valve is grossly normal. No pericardial effusion.
[2024-11-09] MEDS: HYDROmorphone HCL 2 MG/ML VL/or syr IV PRN (12:13)
--- NOTE | 2024-11-09 13:03 | DVHDSRES ---
Discharge Summary Date of Admission Resident Creating Document: WILMER DUARTE RESDIDEMI Nov 08, 2024 at 01:02 Date of Discharge: Nov 10, 2024 Admitting Diagnosis Pelvic pain, diarrhea Labs/Diagnostic Data: Laboratory Results Test 11/09/24 06:21 11/08/24 19:33 11/08/24 06:25 11/08/24 03:10 Sodium Level 143 mmol/L (136-145) Potassium Level 4.0 mmol/L (3.5-5.1) Chloride Level 110 mmol/L (98-107) Carbon Dioxide Level 24 mmol/L (20-31) Anion Gap 9 (5-15) Blood Urea Nitrogen 6 mg/dL (9-23) Creatinine 1.07 mg/dL (0.550-1.02) Glomerular Filtration Rate Calc 73 mL/min (>90) BUN/Creatinine Ratio 5.6 (10.0-20.0) Serum Glucose 90 mg/dL (74-106) Calcium Level 9.5 mg/dL (8.7-10.4) Thyroid Stimulating Hormone (TSH) 2.60 uIU/mL (0.55-4.78) Influenza Type A Antigen Negative (Negative) Influenza Type B Antigen Negative (Negative) SARS-CoV-2 Antigen (Rapid) Negative (NEGATIVE) White Blood Count 7.6 10^3/uL (4.4-10.8) Red Blood Count 4.11 10^6/uL (4.0-5.20) Hemoglobin 13.5 g/dL (12.2-16.2) Hematocrit 39.7 % (36.0-46.0) Mean Corpuscular Volume 96.6 fL (80.0-100.0) Mean Corpuscular Hemoglobin 32.8 pg (28.0-32.0) Mean Corpuscular Hemoglobin Concent 33.9 g/dL (32.0-36.0) Red Cell Distribution Width 13.2 % (11.8-14.3) Platelet Count 258 10^3/uL (140-450) Mean Platelet Volume 7.9 fL (6.9-10.8) Neutrophils (%) (Auto) 86.3 % (37.0-80.0) Lymphocytes (%) (Auto) 11.7 % (10.0-50.0) Monocytes (%) (Auto) 1.9 % (0.0-12.0) Eosinophils (%) (Auto) 0.0 % (0.0-7.0) Basophils (%) (Auto) 0.1 % (0.0-2.0) Neutrophils # (Auto) 6.6 10 ^3/uL (1.6-8.6) Lymphocytes # (Auto) 0.9 10 ^3/uL (0.4-5.4) Monocytes # (Auto) 0.1 10 ^3/uL (0-1.3) Eosinophils # (Auto) 0 10 ^3/uL (0-0.8) Basophils # (Auto) 0 10 ^3/uL (0-0.2) Nucleated Red Blood Cells 0.1 % Vitamin B12 Level 213 pg/mL (211-911) Vitamin D 25-Hydroxy 23.3 ng/mL (30.0-100) Free Thyroxine (T4) Calculated 1.26 ng/dL (0.89-1.76) Free Triiodothyronine (T3) pg/mL 3.22 pg/mL (2.3-4.2) Test 11/08/24 02:13 11/07/24 23:35 11/07/24 21:12 Total Bilirubin 0.4 mg/dL (0.2-1.0) Aspartate Amino Transferase (AST) 38 U/L (13-40) Alanine Aminotransferase (ALT) 76 U/L (7-40) Alkaline Phosphatase 82 U/L (46-116) Total Protein 6.4 g/dL (5.7-8.2) Albumin 4.2 g/dL (3.2-4.8) Lactic Acid Level 1.5 mmol/L (0.4-2.0) Urine Color Yellow (Yellow) Urine Clarity Turbid (Clear) Urine pH 6.0 (5.0-9.0) Urine Specific [place] 1.020 (1.001-1.035) Urine Protein 1+ (Negative) Urine Ketones 1+ (Negative) Urine Blood Trace /uL (Negative) Urine Nitrite Negative (Negative) Urine Bilirubin Negative (Negative) Urine Urobilinogen Normal mg/dL (Negative) Urine Leukocyte Esterase 1+ /uL (Negative) Urine RBC 11 /hpf (0 - 4) Urine WBC 4 /hpf (0 - 5) Urine Squamous Epithelial Cells Few /hpf (<5) Urine Bacteria Few /hpf (None Seen) Urine Hyaline Casts Few /lpf (0 - 2) Urine Mucus Few (None Seen) Urine Glucose Normal mg/dL (Normal) Urine Test Negative (Negative) Urine Opiates Screen Neg (NEGATIVE) Urine Fentanyl Screen Neg (NEGATIVE) Urine Barbiturates Screen Neg (NEGATIVE) Urine Phencyclidine Screen Neg (NEGATIVE) Urine Amphetamines Screen Neg (NEGATIVE) Urine Benzodiazepines Screen Neg (NEGATIVE) Urine Cocaine Screen Neg (NEGATIVE) Urine Cannabinoids Screen Pos (NEGATIVE) Other Laboratory Tests 11/09/24 06:21 11/08/24 03:10 Brief Hx & Hospital Course: The patient is a 29-year-old female with a past medical history of IBS, Maryan- Danlos syndrome, narcolepsy, degenerative disc disorder, osteoarthritis of the low back and neck, stress urinary incontinence, pelvic floor dysfunction, migraine, ADHD, and a pulmonary embolism in August 2023. She came to the ED with right-sided pain that began earlier this morning. She reported being well 3-4 days ago before experiencing diarrhea with multiple episodes of loose, watery, brown-orangish stools without blood, accompanied by mild right lower quadrant abdominal pain. There was no fever, chills, recent antibiotic use, or unusual dietary intake. Yesterday morning, she woke with severe right-sided hip pain that worsened throughout the day, leading to faintness and difficulty with balance and walking by evening. She denied recent weight loss, fevers, or night sweats. Since 5:00 p.m. yesterday, she has had nausea with 2-3 episodes of frothy yellow vomiting without blood. Her surgical history includes a colonoscopy for constipation. Family history reveals Marfan syndrome in her father. Socially, she uses marijuana for pain relief, both orally and by smoking, and denies alcohol or other illicit drug use. Her home medications include Eliquis 5 mg b.i.d., guanfacine, progesterone, and Nurtec. She is allergic to adhesive, buspirone, diphenhydramine, metronidazole, morphine, oxcarbazepine, and oxycodone. Urinalysis, showed UTI picture, abdominal CT scan showed mild wall thickening of the large bowel which may be in part due to underdistention versus infectious or inflammatory colitis and the patient was put on antibiotic Zosyn. Due to syncope, echocardiogram was performed, shows normal study. Due to pelvic pain, OBGYN was consulted, recommended outpatient basis follow up. On 11/09, patient is clinically and hemodynamically stable. Symptoms had improved. WBC and lactic acid normalized. Discharge plan discussed with the patient and the patient was discharged. Discharge plan: Follow up with the PCP within 1 week of the discharge Follow up with the discharge Clinic within 1 week after discharge Tablet azithromycin 500 mg the for 7 days Follow up with OBGYN on outpatient basis Continue home meds Consults/Reason for consult Gynecology: Pelvic pain Operations or Procedures [place] [address] Ph: [phone] DIAGNOSTIC IMAGING Diagnostic Imaging Report : [id number] Signed PATIENT: IZA BAILEY ACCT: [id number] UNIT: [id number] : 1995 LOC: ER ROOM / BED: / AGE / SEX: 29 / F ADM STATUS: REG ER SERVICE 23 ORDERING PHYSICIAN: YAW BROWN PROCEDURE(s): ABPL - CT AB PEL WO CON-NO ORAL OR IV REASON: right flank pain ORDER NUMBER(s): [id number], ACCESSION NUMBER(s): [id number] CLINICAL HISTORY: right flank pain TECHNIQUE: CT of the abdomen and pelvis was performed without intravenous contrast. This exam was performed according to our departmental dose optimization program. Up-to-date CT equipment and radiation dose reduction techniques are utilized as appropriate. [Radimetrics Exposure Report] CTDI: [CTDIvol] DLP: 305.57 WID: COMPARISON: CT CT AB PEL WO CON-NO ORAL OR IV on DOS: 07/25/24 FINDINGS: Lower Thorax: Unchanged sub 5 mm nodule in the right lower lobe on series 3, image 22 lung bases otherwise clear. Normal-sized heart. Liver and Biliary system: Unremarkable. Spleen: Unremarkable. Adrenal Glands and Kidneys: Unremarkable. Pancreas and Retroperitoneum: Unremarkable. Aorta and Major Vessels: Unremarkable. Bowel, Mesentery and Peritoneal space: Normal caliber small and large bowel. Normal appendix. No free air or fluid collection. Mild wall thickening of the large bowel although underdistended. Pelvis: Unremarkable. Abdominal wall and Osseous Structures: No destructive osseous lesion. IMPRESSION: 1. Mild wall thickening of the large bowel which may be in part due to underdistention versus infectious or inflammatory colitis. 2. Unchanged sub 5 mm nodule in the right lower lobe which may be postinfectious or inflammatory ATED BY: CRISTIANO BISHOP MD DICTATED DATE/TIME: 11/07/242305 SIGNED BY: CRISTIANO BISHOP MD SIGNED DATE/TIME: 11/07/242305 CC: Condition at Discharge: Good Final Diagnosis/Problems List Sepsis, likely due to colitis/UTI Acute colitis, likely due to bacteria/viral Syncope, likely orthostatic UTI, possible pyelonephritis Pulmonary nodule, 5 mm Hyperkalemia history of Maryan-Danlos syndrome history of irritable bowel syndrome history of degenerative disc disorder and osteoarthritis of low back and neck history of stress urinary continence, and pelvic floor dysfunction Pain, likely due to Dysmenorrhea, continue progesterone History of migraine, and ADH , History of OCD, History of pulmonary embolism, on September 04, 2023 Discharge Disposition: Home Discharge Instruct/Medications Diet: Regular Activity: No Restrictions, As Tolerated Follow Up/Referral: With the PCP within 1 week of the discharge. Follow up with the discharge Clinic within 1 week of the discharge. Follow up with the OBGYN on outpatient basis Medications: Keflex 500 mg b.i.d. for 7 days Ibuprofen 400 mg as needed 3 TID for pain Continue medication Discharge Statement: "Patient was advised to return to the ER or call 911 if any headaches, dizziness, shortness of breath, chest pain, abdominal pain, bleeding, fevers, or worsening of medical condition. Patient was counseled about treatment plan, medications, possible side effects, patientverbalized understanding. All questions were answered to the best of my ability. This discharge took greater then 30 minutes in planning, reviewing documentation, counseling the patient, and discussing with other team members." ASSESSMENT ASSESSMENT Assessment Sepsis, likely due to colitis/UTI Acute colitis, likely due to bacteria/viral Syncope, likely orthostatic acute complicated UTI, possible pyelonephritis Pulmonary nodule, 5 mm Hyperkalemia history of Maryan-Danlos syndrome history of irritable bowel syndrome history of degenerative disc disorder and osteoarthritis of low back and neck history of stress urinary continence, and pelvic floor dysfunction Pain, likely due to Dysmenorrhea, continue progesterone History of migraine, and ADH , History of OCD, History of pulmonary embolism, on September 04, 2023 Date of Service: Nov 10, 2024 Billing Provider: RYAN LEON MD Common Visit Codes: 53384-INH/OBS DISCH DAY >30min WILMER DUARTE RESDIENT Nov 09, 2024 13:03 RYAN LEON MD Nov 11, 2024 09:28
[2024-11-09] MEDS: SODIUM CHLORIDE 0.9% 500 ML IV ONE (14:45)
[2024-11-09] MEDS: ONDANSETRON HCL 4 MG/2 ML VIAL IV PRN (15:04)
--- NOTE | 2024-11-09 16:00 | MEDREC ---
[facility] Intervention Section I [facility] Intervention: Duplication of therapy (PLEASE CONSIDER D/C ZOSYN SINCE DUPLICATION OF THERAPY WITH CIPRO + METRONIDAZOLE) SID ESCOBAR PHARMACIST Nov 09, 2024 16:00
--- NOTE | 2024-11-09 16:54 | DVHPNRES ---
Progress Note Date Seen: Nov 09, 2024 Resident Creating Document: WILMER DUARTE Has the PT tested + for MRSA If YES, has PT been informed?: No Medical Necessity Reason Pt with a Central, PICC or Fol: No Subjective Review of Systems The patient is a 29-year-old female with a past medical history as described below. She came to the ED with a chief complaint of right-sided pain that started earlier this morning. The patient reported that she was apparently well 3-4 days ago when she started having diarrhea with multiple episodes of loose, watery stools, brown-orangish in color, without blood. She had mild abdominal pain in the right lower quadrant, with no associated fever, chills, recent antibiotic use, or eating out of the ordinary. The patient reports that yesterday morning she woke up with severe right-sided hip pain, which worsened throughout the day. By the evening, the pain was so severe that she felt faint, and since then, she has had some difficulty with balance and walking. The patient denied recent weight loss, fevers, or night sweats. Since the evening after 5:00 p.m., she has had nausea with 2-3 episodes of frothy yellow vomiting, without blood in the vomitus. 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 Home medication: Eliquis 5 mg b.i.d., guanfacine, progesterone, nurtec Allergic history: Adhesive, Buspirone, diphenhydramine, metronidazole, morphine, oxcarbazepine, oxycodone Today, patient seen and examined at the bedside. Patient is feeling better since admission. Patient is no vomiting at the moment. Objective vital signs Vital Sign Date Time Temp Pulse Resp B/P (MAP) Pulse Ox O2 Delivery O2 Flow Rate FiO2 11/09/24 13:00 98.2 82 20 139/92 (108) 98 98.2 11/08/24 20:00 Room Air* 0 21 Total Intake and Output 11/08/24 11/08/24 11/09/24 15:00 23:00 07:00 Intake Total 340 ml 300 ml Balance 340 ml 300 ml medications Current Medications Medications Dose Ordered Sig/Stuart Route Start Time Stop Time Status Last Admin Dose Admin Piperacillin Sod/ Tazobactam Sod 100 ml @ 25 mls/hr Q8HR IV 11/08/24 06:00 Hold 11/09/24 14:57 25 MLS/HR Ondansetron HCl 4 mg Q4HPRN PRN IV 11/08/24 01:15 11/09/24 15:04 4 MG Acetaminophen/ Codeine Phosphate 1 tab Q6HP PRN PO 11/08/24 01:15 Hold 11/08/24 18:14 1 TAB Apixaban 5 mg BID PO 11/08/24 10:00 11/08/24 21:38 5 MG Phenazopyridine HCl 100 mg TIDWM PO 11/09/24 08:00 11/09/24 09:18 100 MG Ketorolac Tromethamine 15 mg Q6HPRN PRN IV 11/09/24 10:00 11/14/24 09:59 Hydromorphone HCl 0.5 mg Q6HPRN PRN IV 11/09/24 11:15 11/09/24 12:13 0.5 MG Metronidazole 500 mg Q8HR PO 11/09/24 22:00 Future Hold Ciprofloxacin 500 mg Q12HR PO 11/09/24 22:00 Patient Own Medication 1 DAILY PO 11/09/24 18:00 UNV Patient Own Medication 2 DAILY PO 11/09/24 18:00 UNV Patient Own Medication 1 DAILY@1800 PO 11/09/24 18:00 Patient Own Medication 2 DAILY@1800 PO 11/09/24 18:00 Patient Own Medication 1 DAILY@1800 PO 11/09/24 18:00 Examination General Appearance: Alert, Oriented X3, Cooperative, No acute distress HEENT: Atraumatic, PERRLA, EOMI, Mucous membrane moist/pink Respiratory: Clear to auscultation, Normal air movement Cardiovascular: Regular rate, Normal S1, Normal S2, No murmurs, no chest wall tenderness Abdominal: Normal bowel sounds, Soft, No tenderness, No hepatospenomegaly, No masses Extremities: Hypermobile joints Skin: Hyperextensible skin Neuro: Normal gait, Normal speech, Strength at 5/5 X4 ext, Normal tone, Sensation intact, Cranial nerves 3-12 NL, Reflexes 2+ Psych/Mental Status: Mental status NL, Mood NL laboratory and microbiology Laboratory Tests 11/09/24 06:21 11/08/24 03:10 Test 11/09/24 06:21 Range/Units Serum Glucose 90 74-106 mg/dL Microbiology Date/Time Source Procedure Growth Status 11/07/24 21:34 Blood Blood Culture - Preliminary NO GROWTH AFTER 24 HOURS OF INCUBATION. Resulted 11/07/24 21:12 Voided Urine Urine Culture - Preliminary Resulted Labs and/or images reviewed: Labs reviewed by me, Image(s) reviewed by me Problem List/Assessment/Plan Problem List/Assessment/Plan # sepsis, likely due to colitis/UTI # Acute colitis, likely due to bacteria/viral Abdominal CT scan, shows mild wall thickening of the large bowel which may be in part due to underdistention versus infectious or inflammatory colitis Check stool culture, stool WBC WBCs raised at 7:20 a.m. 0.3, lactic acid is 2.3 Discontinue IV antibiotic, started oral antibiotic Flagyl and ciprofloxacin, we will observe the tolerance of patient to oral antibiotic IV fluid #Syncope, likely orthostatic patent lost consciousness for few second and regained full consciousness upon waking up Echo # UTI, unspecified location Urinalysis shows UTI picture Urine culture Ciprofloxacin #Pulmonary nodule CT scan shows, unchanged sub 5 mm nodule in the right lower lobe which may be postinfectious or inflammatory Outpatient follow up #Hyperkalemia, monitoring #Has history of Maryan-Danlos syndrome #Has a history of irritable bowel syndrome #Has history of degenerative disc disorder and osteoarthritis of low back and neck, continue neurotic #Has history of stress urinary continence, and pelvic floor dysfunction #Dysmenorrhea, continue progesterone #History of migraine, and ADH , #History of OCD, #History of pulmonary embolism, on September 04, 2023, continue Eliquis 5 mg b.i.d. DIET: Clear liquid diet DVT PROPHYLAXIS: Patient is on Eliquis GI PROPHYLAXIS:: Protonix is not indicated BOWEL REGIMEN: Patient has diarrhea, no indication for the laxative CODE STATUS: Code status discussed for more than 20 minutes, full code DISPOSITION: Med surge Patient's status discussed with patient. Discontinue IV antibiotic, started oral antibiotic Flagyl and ciprofloxacin, we will observe the tolerance of patient to oral antibiotic. Case discussed with Dr. Ignacio. Plan discussed with: Patient, Other (RN) My Orders My Orders Orders - WILMER DUARTE Procedure Category Date Status Time Ketorolac Injection PHA 11/09/24 In Process (Toradol Injection) 10:00 Hydromorphone PHA 11/09/24 In Process Injection (Dilaudid 11:15 Schedule For Dc JOSE 11/09/24 In Process Clinic F/U 12:07 Metronidazole Tablet PHA 11/09/24 In Process (Flagyl Tablet) 22:00 Ciprofloxacin Tablet PHA 11/09/24 In Process (Cipro Tablet) 22:00 Patients Own PHA 11/09/24 In Process Medication 18:00 Patients Own PHA 11/09/24 In Process Medication 18:00 Patients Own PHA 11/09/24 In Process Medication 18:00 Date of Service: Nov 09, 2024 Billing Provider: MAX IGNACIO MD Common Visit Codes: [id number] INP/OBS CARE(HIGH) WILMER DUARTE Nov 09, 2024 16:54 MAX IGNACIO MD Nov 09, 2024 22:34
[2024-11-09] MEDS: NORETHINDRONE 5 MG TABLET PO SCH (18:23)
[2024-11-09] MEDS: GUANFACINE HCL 4 MG PO SCH (18:23)
[2024-11-09] MEDS: ALPRAZolam 0.5 MG TAB PO ONE (21:23)
[2024-11-09] MEDS: CIPROFLOXACIN HCL 500 MG TAB PO SCH (21:24)
[2024-11-09] MEDS ORDERED: metroNIDAZOLE 500 MG TAB PO SCH (22:00)
[2024-11-10] VITALS (7 sets, daily range): BP systolic 108–129; BP diastolic 69–86; PULSE 67–91; RESP 16–18; TEMP 97.9–98.7; O2SAT 94–100
[2024-11-10 06:29] LABS: Potassium 3.5 mmol/L (3.5-5.1); Sodium 143 mmol/L (136-145)
[2024-11-10 06:30] LABS: Anion Gap 9 (5-15); Calcium 10.1 mg/dL (8.7-10.4); Carbon Dioxide 26 mmol/L (20-31)
[2024-11-10 06:34] LABS: Chloride 108 mmol/L (98-107)
[2024-11-10 06:35] LABS: BUN/Creatinine Ratio 6.5 (10.0-20.0); Glucose 104 mg/dL (74-106)
[2024-11-10 06:44] LABS: Blood Urea Nitrogen 6 mg/dL (9-23)
[2024-11-10] MEDS: ERGOCALCIFEROL 50,000 UNIT(1.25MG) CAP PO SCH (09:16)
[2024-11-10] MEDS: CYANOCOBALAMIN (B-12) 1000 MCG/1 ML VIAL IM ONE (09:17)
[2024-11-10] MEDS ORDERED: AZIT500T66 PO (14:23)
[2024-11-10] MEDS: ALPRAZolam 0.5 MG TAB PO PRN (16:09)
--- NOTE | 2024-11-10 18:08 | DVH ---
INDICATION: Pelvic Pain TECHNIQUE: Multiple real-time grayscale transabdominal and transvaginal sonographic images along with color and duplex Doppler of the uterus and ovaries were obtained. COMPARISON: None FINDINGS: The uterus measures 5.6 by 2.5 x 3.8 cm cm. The endometrial stripe poorly visualized The right ovary measures 2.1 x 2.1 x 1.9 cm cm. The left ovary measures 2.1 x 2.6 x 1.6 cm. Subsequent color and duplex Doppler interrogation of the ovaries demonstrated symmetric vascular flow to both ovaries, though this does not exclude the possibility of torsion due to the dual blood suppl y. IMPRESSION: 1. Unremarkable uterus and ovaries.
[2024-11-11] VITALS (8 sets, daily range): BP systolic 107–139; BP diastolic 69–93; PULSE 61–107; RESP 17–18; TEMP 98–98.3; O2SAT 94–99
[2024-11-11 06:35] LABS: Albumin 4.3 g/dL (3.2-4.8); Alkaline Phosphatase 84 U/L (46-116); Anion Gap 8 (5-15); BUN/Creatinine Ratio 6.9 (10.0-20.0); Calcium 9.4 mg/dL (8.7-10.4); Carbon Dioxide 24 mmol/L (20-31); Potassium 3.7 mmol/L (3.5-5.1); Sodium 142 mmol/L (136-145)
[2024-11-11 06:36] LABS: Alanine Aminotransferase 85 U/L (7-40); Aspartate Aminotransferase 42 U/L (13-40); Basophils # (auto) 0 10 ^3/uL (0-0.2); Basophils % (auto) 0.2 % (0.0-2.0); Bilirubin, Total 0.4 mg/dL (0.2-1.0); Blood Urea Nitrogen 7 mg/dL (9-23); Chloride 110 mmol/L (98-107); Eosinophils # (auto) 0.2 10 ^3/uL (0-0.8); Eosinophils % (auto) 2.4 % (0.0-7.0); Glucose 117 mg/dL (74-106); Hematocrit 43.9 % (36.0-46.0); Hemoglobin 15.2 g/dL (12.2-16.2); Lymphocytes # (auto) 3.5 10 ^3/uL (0.4-5.4); Lymphocytes % (auto) 52.6 % (10.0-50.0); Mean Corpuscular Hgb Conc. 34.6 g/dL (32.0-36.0); Mean Corpuscular Volume 95.2 fL (80.0-100.0); Monocytes # (auto) 0.6 10 ^3/uL (0-1.3); Monocytes % (auto) 8.4 % (0.0-12.0); Neutrophils # (auto) 2.4 10 ^3/uL (1.6-8.6); Neutrophils % (auto) 36.4 % (37.0-80.0); Nucleated Red Blood Cells % 0.1 %; Platelet Count (auto) 263 10^3/uL (140-450); Red Blood Cells 4.61 10^6/uL (4.0-5.20); Red Cell Distribution Width 13.1 % (11.8-14.3); Total Protein 6.6 g/dL (5.7-8.2); White Blood Cell 6.7 10^3/uL (4.4-10.8)
[2024-11-11] MEDS ORDERED: AUG875T PO (10:55)
--- NOTE | 2024-11-11 14:38 | DVHPNRES ---
Progress Note Date Seen: Nov 11, 2024 Resident Creating Document: WILMER DUARTE Has the PT tested + for MRSA If YES, has PT been informed?: No Medical Necessity Reason Pt with a Central, PICC or Fol: No Subjective Review of Systems The patient is a 29-year-old female with a past medical history as described below. She came to the ED with a chief complaint of right-sided pain that started earlier this morning. The patient reported that she was apparently well 3-4 days ago when she started having diarrhea with multiple episodes of loose, watery stools, brown-orangish in color, without blood. She had mild abdominal pain in the right lower quadrant, with no associated fever, chills, recent antibiotic use, or eating out of the ordinary. The patient reports that yesterday morning she woke up with severe right-sided hip pain, which worsened throughout the day. By the evening, the pain was so severe that she felt faint, and since then, she has had some difficulty with balance and walking. The patient denied recent weight loss, fevers, or night sweats. Since the evening after 5:00 p.m., she has had nausea with 2-3 episodes of frothy yellow vomiting, without blood in the vomitus. 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 Home medication: Eliquis 5 mg b.i.d., guanfacine, progesterone, nurtec Allergic history: Adhesive, Buspirone, diphenhydramine, metronidazole, morphine, oxcarbazepine, oxycodone Today, patient seen and examined at the bedside. Patient is feeling better since admission. Patient is no vomiting and pain at the moment. Objective vital signs Vital Sign Date Time Temp Pulse Resp B/P (MAP) Pulse Ox O2 Delivery O2 Flow Rate FiO2 11/11/24 13:00 98.0 61 17 107/69 (82) 99 98.0 11/11/24 08:00 Room Air* 0 21 Total Intake and Output 11/10/24 11/10/24 11/11/24 15:00 23:00 07:00 Intake Total 2150 ml 1800 ml Balance 2150 ml 1800 ml medications Current Medications Medications Dose Ordered Sig/Stuart Route Start Time Stop Time Status Last Admin Dose Admin Piperacillin Sod/ Tazobactam Sod 100 ml @ 25 mls/hr Q8HR IV 11/08/24 06:00 Hold 11/09/24 14:57 25 MLS/HR Ondansetron HCl 4 mg Q4HPRN PRN IV 11/08/24 01:15 11/10/24 09:15 4 MG Acetaminophen/ Codeine Phosphate 1 tab Q6HP PRN PO 11/08/24 01:15 Hold 11/08/24 18:14 1 TAB Apixaban 5 mg BID PO 11/08/24 10:00 11/11/24 10:07 5 MG Phenazopyridine HCl 100 mg TIDWM PO 11/09/24 08:00 11/09/24 09:18 100 MG Ketorolac Tromethamine 15 mg Q6HPRN PRN IV 11/09/24 10:00 11/14/24 09:59 Hydromorphone HCl 0.5 mg Q6HPRN PRN IV 11/09/24 11:15 11/11/24 06:16 0.5 MG Metronidazole 500 mg Q8HR PO 11/09/24 22:00 Hold Ciprofloxacin 500 mg Q12HR PO 11/09/24 22:00 Patient Own Medication 1 DAILY PO 11/09/24 18:00 UNV Patient Own Medication 2 DAILY PO 11/09/24 18:00 UNV Patient Own Medication 1 DAILY@1800 PO 11/09/24 18:00 11/10/24 17:27 1 Patient Own Medication 2 DAILY@1800 PO 11/09/24 18:00 11/10/24 17:27 2 Patient Own Medication 1 DAILY@1800 PO 11/09/24 18:00 11/09/24 18:23 1 Ergocalciferol 50,000 unit Q7D PO 11/10/24 08:45 11/10/24 09:16 50,000 UNIT Alprazolam 0.5 mg [id number] PRN PO 11/10/24 16:15 11/11/24 04:06 0.5 MG Examination EENT: Atraumatic, PERRLA, EOMI, Mucous membrane moist/pink Respiratory: Clear to auscultation, Normal air movement Cardiovascular: Regular rate, Normal S1, Normal S2, No murmurs, no chest wall tenderness Abdominal: Normal bowel sounds, Soft, No tenderness, No hepatospenomegaly, No masses Extremities: Hypermobile joints Skin: Hyperextensible skin Neuro: Normal gait, Normal speech, Strength at 5/5 X4 ext, Normal tone, Sensation intact, Cranial nerves 3-12 NL, Reflexes 2+ Psych/Mental Status: Mental status NL, Mood NL laboratory and microbiology Laboratory Tests 11/11/24 05:44 Test 11/11/24 05:44 Range/Units Serum Glucose 117 H 74-106 mg/dL Microbiology Date/Time Source Procedure Growth Status 11/07/24 21:34 Blood Blood Culture - Preliminary NO GROWTH AFTER 72 HOURS OF INCUBATION. Resulted 11/07/24 21:12 Voided Urine Urine Culture - Final Complete Labs and/or images reviewed: Labs reviewed by me, Image(s) reviewed by me Problem List/Assessment/Plan Problem List/Assessment/Plan # sepsis, likely due to colitis/UTI # Acute colitis, likely due to bacteria/viral Abdominal CT scan, shows mild wall thickening of the large bowel which may be in part due to underdistention versus infectious or inflammatory colitis Check stool culture, stool WBC WBCs raised at 7:20 a.m. 0.3, lactic acid is 2.3 Discontinue IV antibiotic, started oral antibiotic Flagyl and ciprofloxacin, we will observe the tolerance of patient to oral antibiotic IV fluid #Syncope, likely orthostatic patent lost consciousness for few second and regained full consciousness upon waking up Echo # UTI, unspecified location Urinalysis shows UTI picture Urine culture Ciprofloxacin #Pulmonary nodule CT scan shows, unchanged sub 5 mm nodule in the right lower lobe which may be postinfectious or inflammatory Outpatient follow up #Hyperkalemia, monitoring #Has history of Maryan-Danlos syndrome #Has a history of irritable bowel syndrome #Has history of degenerative disc disorder and osteoarthritis of low back and neck, continue neurotic #Has history of stress urinary continence, and pelvic floor dysfunction #Dysmenorrhea, continue progesterone #History of migraine, and ADH , #History of OCD, #History of pulmonary embolism, on September 04, 2023, continue Eliquis 5 mg b.i.d. DIET: Clear liquid diet DVT PROPHYLAXIS: Patient is on Eliquis GI PROPHYLAXIS:: Protonix is not indicated BOWEL REGIMEN: Patient has diarrhea, no indication for the laxative CODE STATUS: Code status discussed for more than 20 minutes, full code DISPOSITION: Med surge Patient's status discussed with patient and father on the phone. Patient was discharged on 11/10/2024, but the patient refused to leave the hospital and was asking for ultrasound, pelvic ultrasound performed and was normal. Patient is status discussed with the father, and the father is supposed to come and pick him up. Physiotherapy evaluated the patient, and recommended walker social science professor has been consulted for to provide walker. Case discussed with Dr. Ignacio. Plan discussed with: Patient, Other (Father) My Orders My Orders Orders - WILMER DUARTE Procedure Category Date Status Time * Oracle Application Architect CONS 11/10/24 Transmitted Consult Alprazolam Tablet PHA 11/10/24 In Process (Xanax Tablet) 16:15 Pelvic US 11/10/24 Resulted 16:02 Discharge DISCHARGE 11/11/24 Transmitted 10:54 Pt Request For Service PT 11/11/24 Logged 13:31 * Oracle Application Architect CONS 11/11/24 Transmitted Consult * [employer] Application Architect CONS 11/11/24 Transmitted Consult WILMER DUARTE Nov 11, 2024 14:38
[2024-11-11] MEDS: ONDANSETRON HCL 4 MG/2 ML VIAL IV ONE (21:54)
[2024-11-12 01:00] VITALS: BP 117/76; PULSE 100; RESP 18; TEMP 98.3; O2SAT 98
[2024-11-12 07:34] LABS: Albumin 4.4 g/dL (3.2-4.8); Alkaline Phosphatase 82 U/L (46-116); Anion Gap 7 (5-15); Aspartate Aminotransferase 34 U/L (13-40); BUN/Creatinine Ratio 8.5 (10.0-20.0); Calcium 9.7 mg/dL (8.7-10.4); Carbon Dioxide 25 mmol/L (20-31); Potassium 4.4 mmol/L (3.5-5.1); Sodium 141 mmol/L (136-145)
[2024-11-12 07:35] LABS: Bilirubin, Total 0.3 mg/dL (0.2-1.0); Total Protein 6.9 g/dL (5.7-8.2)
[2024-11-12 07:38] LABS: Basophils # (auto) 0 10 ^3/uL (0-0.2); Basophils % (auto) 0.3 % (0.0-2.0); Eosinophils # (auto) 0.2 10 ^3/uL (0-0.8); Hematocrit 45.4 % (36.0-46.0); Hemoglobin 15.6 g/dL (12.2-16.2); Lymphocytes # (auto) 4.2 10 ^3/uL (0.4-5.4); Lymphocytes % (auto) 49.7 % (10.0-50.0); Mean Corpuscular Hemoglobin 32.6 pg (28.0-32.0); Mean Corpuscular Hgb Conc. 34.3 g/dL (32.0-36.0); Monocytes # (auto) 0.8 10 ^3/uL (0-1.3); Monocytes % (auto) 9.1 % (0.0-12.0); Neutrophils # (auto) 3.3 10 ^3/uL (1.6-8.6); Neutrophils % (auto) 38.9 % (37.0-80.0); Nucleated Red Blood Cells % 0.1 %; Platelet Count (auto) 293 10^3/uL (140-450); Red Blood Cells 4.78 10^6/uL (4.0-5.20); White Blood Cell 8.5 10^3/uL (4.4-10.8)
[2024-11-12 07:57] LABS: Glucose 90 mg/dL (74-106)
[2024-11-12 08:00] VITALS: PULSE 107; RESP 20; O2SAT 98
[2024-11-12 09:00] VITALS: BP 111/84; PULSE 107; RESP 20; TEMP 98.1; O2SAT 98
[2024-11-12 09:05] LABS: Alanine Aminotransferase 73 U/L (7-40); Blood Urea Nitrogen 8 mg/dL (9-23); Chloride 109 mmol/L (98-107)
[2024-11-12 12:55] VITALS: BP 111/84; PULSE 107; RESP 20; TEMP 98.1; O2SAT 98
[2024-11-12 13:00] VITALS: BP 123/84; PULSE 80; RESP 100; TEMP 98.2; O2SAT 100
[2024-11-12] MEDS: AMOXICILLIN/CLAVUL 875 MG TAB PO ONE (15:42)
[2024-11-12 17:00] VITALS: BP 143/89; PULSE 81; RESP 20; TEMP 98.1; O2SAT 96
[2024-11-12] MEDS ORDERED: AMOXICILLIN/CLAVUL 875 MG TAB PO SCH (22:00)
--- NOTE | 2024-11-13 10:55 | DVHPN2 ---
Subjective patient continues to decline discharge. asking for iv dilaudid and po xanax. VS stable. AOx4. labs stable. ambulating with her walker. she agreed to discharge if given PO xanax as prn, after complied, she again refuses discharge. she says her outside reports indicate abnormal labs (ferritin? transferrin?) but doesnt provide numbers and also claims her normal BP is "too high for me" and accusing staff of malpractice. she is possibly homeless. she cannot appeal discharge as she is [employer] (not medicare/medical). 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 resume discharge. Reviewed: H&P Changes from previous H/P or p: No Changes General: Per HPI Objective Vitals Vital Signs Date Time Temp Pulse Resp B/P (MAP) Pulse Ox O2 Delivery O2 Flow Rate FiO2 11/12/24 17:00 98.1 81 20 143/89 (107) 96 98.1 11/12/24 08:00 Room Air* 0 21 Intake/Output Intake and Output 11/13/24 07:00 Intake Total 1040 ml Output Total 1600 ml Balance -560 ml Intake Oral 1040 ml Output Urine Total 1600 ml Exam GEN: Healthy appearing, well-developed, NAD. HEENT: NC/AT; MMM. CV: RRR, no m/r/g. LUNGS: CTAB, no w/r/c. ABD: Soft, NT/ND, NBS, no masses or organomegaly. EXT: skin Warm, well perfused. no rashes. No clubbing, cyanosis, or edema. NEURO: Ambulating with no limitations. No focal deficits. Medications Current Medications Medications Dose Ordered Sig/Stuart Route Start Time Stop Time Status Last Admin Dose Admin Patient Own Medication 1 DAILY PO 11/09/24 18:00 UNV Patient Own Medication 2 DAILY PO 11/09/24 18:00 UNV Laboratory Results Laboratory Tests 11/12/24 05:51 Urinalysis Test 11/07/24 21:12 Urine Color Yellow (Yellow) Urine Clarity Turbid (Clear) H Urine pH 6.0 (5.0-9.0) Urine Specific [place] 1.020 (1.001-1.035) Urine Protein 1+ (Negative) H Urine Ketones 1+ (Negative) H Urine Blood Trace /uL (Negative) H Urine Nitrite Negative (Negative) Urine Bilirubin Negative (Negative) Urine Urobilinogen Normal mg/dL (Negative) Urine Leukocyte Esterase 1+ /uL (Negative) Urine RBC 11 /hpf (0 - 4) Urine WBC 4 /hpf (0 - 5) Urine Squamous Epithelial Cells Few /hpf (<5) Urine Bacteria Few /hpf (None Seen) H Urine Hyaline Casts Few /lpf (0 - 2) Urine Mucus Few (None Seen) Urine Glucose Normal mg/dL (Normal) Urine Test Negative (Negative) Microbiology Microbiology Date/Time Source Procedure Growth Status 11/07/24 21:34 Blood Blood Culture - Final NO GROWTH AFTER 5 DAYS OF INCUBATION. Complete 11/07/24 21:12 Voided Urine Urine Culture - Final Complete Labs and/or images reviewed: Labs reviewed by me, Image(s) reviewed by me Assessment/Plan Assessment/Plan update 11/12 - patient continues to decline discharge. asking for iv dilaudid and po xanax. VS stable. AOx4. labs stable. ambulating with her walker. she agreed to discharge if given PO xanax as prn, after complied, she again refuses discharge. she says her outside reports indicate abnormal labs (ferritin? transferrin?) but doesnt provide numbers and also claims her normal BP is "too high for me" and accusing staff of malpractice. she is possibly homeless. she cannot appeal discharge as she is [employer] (not medicare/medical). 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 resume discharge. see DC summary. # sepsis, likely due to colitis/UTI, resolved # Acute colitis, likely due to bacteria/viral -Abdominal CT scan, shows mild wall thickening of the large bowel which may be in part due to underdistention versus infectious or inflammatory colitis Check stool culture, stool WBC -WBCs raised at 7:20 a.m. 0.3, lactic acid is 2.3 -Discontinue IV antibiotic, started oral antibiotic augmentin., #Syncope, likely orthostatic; resolved patent lost consciousness for few second and regained full consciousness upon waking up # UTI, unspecified location, unlikely. Urinalysis not completely convincing of UTI picture Urine culture neg - po augmentin #Pulmonary nodule -CT scan shows, unchanged sub 5 mm nodule in the right lower lobe which may be postinfectious or inflammatory Outpatient follow up #Hyperkalemia, monitoring; resolved #Has history of Maryan-Danlos syndrome #Has a history of irritable bowel syndrome #Has history of degenerative disc disorder and osteoarthritis of low back and neck, continue neurotic #Has history of stress urinary continence, and pelvic floor dysfunction #Dysmenorrhea, continue progesterone #History of migraine, and ADH , #History of OCD, #History of pulmonary embolism, on September 04, 2023, continue Eliquis 5 mg b.i.d. DIET: po diet DVT PROPHYLAXIS: Patient is on Eliquis GI PROPHYLAXIS:: tolerating diet BOWEL REGIMEN: na CODE STATUS: full code DISPOSITION: Med surge (Note for 11/12/24) Plan discussed with: Patient Date of Service: Nov 12, 2024 Billing Provider: RYAN LEON MD Common Visit Codes: [id number] INP/OBS CARE(HIGH) RYAN LEON MD Nov 13, 2024 10:55
== END 2024-11-12 18:44 | disposition home or self-care (01) | DRG 871 ==
LOC: ER 18:19 → OVERFLOW 11-08 01:02 → EAST 11-08 11:11 → CENTRAL 11-08 17:41
PROVIDERS: ADMIT Student in an Organized Health Care Education/Training Program; ATTEND Emergency Medicine
DX: A41.9 Sepsis, unspecified organism (principal); N17.0 Acute kidney failure with tubular necrosis; N12 Tubulo-interstitial nephritis, not specified as acute or chronic; Q79.60 Ehlers-Danlos syndrome, unspecified; A04.9 Bacterial intestinal infection, unspecified; G43.909 Migraine, unspecified, not intractable, without status migrainosus; E87.5 Hyperkalemia; N94.6 Dysmenorrhea, unspecified; F42.9 Obsessive-compulsive disorder, unspecified; R91.1 Solitary pulmonary nodule; A08.4 Viral intestinal infection, unspecified; M41.9 Scoliosis, unspecified; Z88.6 Allergy status to analgesic agent; Z88.5 Allergy status to narcotic agent; Z88.8 Allergy status to other drugs, medicaments and biological substances; Z79.899 Other long term (current) drug therapy; Z86.711 Personal history of pulmonary embolism; Z79.01 Long term (current) use of anticoagulants; I95.1 Orthostatic hypotension
CPT/HCPCS: 36415; 71045; 74176; 76856; 80048; 80053; 80307; 81001; 81025; 82306; 82607; 83605; 84439; 84443; 84481; 85025; 87040; 87086; 87426; 87804; 93306; 97110; 97116; 97163; 97530; G0378; J0696; J1885; J2405; J2543

== ENCOUNTER 2024-12-16 16:21 | Inpatient (IN) | payer MEDICAID, OTHER ==
[~2024-12-16] VITALS: Ht 172.7 cm; Wt 67.9 kg
[~2024-12-16 16:21] MED LIST changes: +AUG875T PO; +FLUV100T15 PO; +GUAN1TAB23 PO; -LEVO500T91 PO; -NITR-87 PO; +RIME75TA PO
--- NOTE | 2024-12-16 17:01 | ED.PDOC ---
HPI Comments Lotus White is a 21-year-old female patient who presents to ED brought by EMS with chief complaint of retrosternal oppressive chest pain which has been constant since 12:00 p.m. today, intensity 5/10 in functional class IV, associated she presented dyspnea, nausea, vomiting, headache, chills, clammy hands and cold hands. Per EMS patient presented fluctuating heart rate and blood pressure during route. Denies palpitation, syncope, diarrhea, constipation, bleeding, recent travel, leg swelling, sick contacts and motor or sensory deficits. Past medical history: 2022 PE treated with heparin (no invasive treatment) complicated with hemorrhage of left lung (per patient she was extensively studied, all negative), narcolepsy, Mrayan-Danlos syndrome, right simple renal cyst, chronic nausea and vomiting status post endoscopies within normal limits, degenerative disc disease, recent admission due to sepsis probably secondary to GI infection, migraine, non alcoholic fatty liver disease, IBS, stress urinary continence, ADHD, OCD, metrorrhagia Surgical history: Colonoscopy/EGD Family history: Father has Marfan's disease with requirement of aortic valve replacement and ascending aorta replacement, also has hypertension dyslipidemia Social history: Lives in [place] father, continuous care in [place]. Occasionally marijuana use. Denies current tobacco, alcohol and other drug abuse Allergies: Adhesive, Brexpiprazole, buspirone, diphenhydramine, ketorolac, metronidazole, morphine, oxcarbazepine, oxycodone Home medication: Progesterone pills, apixaban 5 mg p.o. b.i.d., guanfacine, Luvox, Nurtec Chief Complaint: Shortness of Breath Time Seen by MD: 16:36 Primary Care Provider: Unknown Allergies: Coded Allergies: Brexpiprazole (Verified Allergy, Unknown, 06/13/24) Buspirone (Verified Allergy, Unknown, 06/13/24) Diphenhydramine (Verified Allergy, Unknown, 06/13/24) Ketorolac (Verified Allergy, Unknown, 11/09/24) Metronidazole (Verified Allergy, Unknown, 06/13/24) Morphine (Verified Allergy, Unknown, 06/13/24) Oxcarbazepine (Verified Allergy, Unknown, 06/13/24) Oxycodone (Verified Allergy, Unknown, 06/13/24) Uncoded Allergies: ADHESIVE (Allergy, Unknown, 06/13/24) Home Meds Active Scripts Amoxicillin & Pot Clavulanate (AUGMENTIN TABLET) 875 Mg Tb, 875 MG PO BID, #7 TAB 0 Refills Prov:RYAN LEON MD 11/11/24 Reported Medications Guanfacine HCl (Guanfacine ER) 4 Mg Tab, 4 MG PO, TAB 11/08/24 Fluvoxamine Maleate (Fluvoxamine Maleate) 100 Mg Tab, 1 TAB PO QPM, #30 TAB 2 Refills 11/08/24 Rimegepant Sulfate (Nurtec) 75 Mg Tab, 1 TAB PO 11/08/24 Past Medical History PAST MEDICAL HISTORY: PE Surgical History: Denies all surgeries DISPATCHER RADIO History: Denies all DISPATCHER RADIO Hx Family History Family History: Unknown Social History Smoker: Non-Smoker Alcohol: Denies ETOH Use Drugs: Marijuana Lives In: Home Physical Exam General Appearance: No Apparent Distress, Normal HEENT: Normal ENT Inspection, Pharynx Normal, TMs Normal Neck: Full Range of Motion, Non-Tender, Normal, Normal Inspection Respiratory: Chest Non-Tender, Lungs Clear, No Accessory Muscle Use, No Respiratory Distress, Normal Breath Sounds Cardiovascular: No Edema, No JVD, No Murmur, No Gallop, Normal Peripheral Pulses, Regular Rate/Rhythm Breast Exam: Deferred Gastrointestinal: No Organomegaly, Non Tender, No Pulsatile Mass, Normal Bowel Sounds, Soft Genitalia: Deferred Pelvic: Deferred Rectal: Deferred Extremities: No calf tenderness, Normal capillary refill, Normal inspection, Normal range of motion, Non-tender, No pedal edema Neurologic: Alert, assurance manager insurance II-XII nml as Tested, No Motor Deficits, Normal Affect, Normal Mood, No Sensory Deficits Cerebellar Function: Normal Reflexes: Normal Skin: Dry, Normal Color, Warm Lymphatic: No Adenopathy EKG EKG : Comments Sinus rhythm at 90 beats per minute, narrow QRS, no ST alteration Was a procedure done? Was a procedure done?: No CP Differential Dx Differential Diagnosis: A-Flutter, Anxiety / Panic Attack, Electrolyte Disorder, Heart Failure, Hyperthyroidism, [place], PSVT, Pulmonary Embolus, Renal Failure, [place] Pointes, Ventricular Dysrhythmia X-Ray, Labs, Meds, VS Vital Signs Date Time Temp Pulse Resp B/P (MAP) Pulse Ox O2 Delivery O2 Flow Rate FiO2 1/31/25 20:34 110 20 155/80 12/16/24 20:02 110 20 98 Room Air* 0 21 12/16/24 19:45 99.2 110 20 155/80 (105) 98 99.2 12/16/24 17:09 99.4 112 19 119/77 (91) 99 99.4 12/16/24 17:09 112 19 99 Room Air 12/16/24 16:54 98.0 131 16 140/80 (100) 99 12/16/24 16:21 96 Lab Test 12/16/24 20:30 12/16/24 19:08 12/16/24 17:53 12/16/24 17:35 Range/Units Troponin I High Sensitivity Pending < 3 L < 3 L </=34 ng/L Urine Color Yellow Yellow Urine Clarity Clear Clear Urine pH 7.0 5.0-9.0 Urine Specific [place] 1.022 1.001-1.035 Urine Protein Trace H Negative Urine Ketones Negative Negative Urine Blood Trace H Negative /uL Urine Nitrite Negative Negative Urine Bilirubin Negative Negative Urine Urobilinogen Normal Negative mg/dL Urine Leukocyte Esterase Negative Negative /uL Urine RBC 10 0 - 4 /hpf Urine Microscopic WBC < 1 0-5 /HPF Urine Squamous Epithelial Cells Few <5 /hpf Urine Bacteria None seen None Seen /hpf Urine Mucus Few None Seen Urine Glucose Normal Normal mg/dL Urine Test Negative Negative Urine Opiates Screen Neg NEGATIVE Urine Fentanyl Screen Neg NEGATIVE Urine Barbiturates Screen Neg NEGATIVE Urine Phencyclidine Screen Neg NEGATIVE Urine Amphetamines Screen Neg NEGATIVE Urine Benzodiazepines Screen Neg NEGATIVE Urine Cocaine Screen Neg NEGATIVE Urine Cannabinoids Screen Pos NEGATIVE White Blood Count 14.2 H 4.4-10.8 10^3/uL Red Blood Count 5.28 H 4.0-5.20 10^6/uL Hemoglobin 17.0 H 12.2-16.2 g/dL Hematocrit 49.9 H 36.0-46.0 % Mean Corpuscular Volume 94.5 80.0-100.0 fL Mean Corpuscular Hemoglobin 32.2 H 28.0-32.0 pg Mean Corpuscular Hemoglobin Concent 34.0 32.0-36.0 g/dL Red Cell Distribution Width 13.6 11.8-14.3 % Platelet Count 417 140-450 10^3/uL Mean Platelet Volume 7.4 6.9-10.8 fL Neutrophils (%) (Auto) 76.4 37.0-80.0 % Lymphocytes (%) (Auto) 18.1 10.0-50.0 % Monocytes (%) (Auto) 5.2 0.0-12.0 % Eosinophils (%) (Auto) 0.1 0.0-7.0 % Basophils (%) (Auto) 0.2 0.0-2.0 % Neutrophils # (Auto) 10.9 H 1.6-8.6 10 ^3/uL Lymphocytes # (Auto) 2.6 0.4-5.4 10 ^3/uL Monocytes # (Auto) 0.7 0-1.3 10 ^3/uL Eosinophils # (Auto) 0 0-0.8 10 ^3/uL Basophils # (Auto) 0 0-0.2 10 ^3/uL Nucleated Red Blood Cells 0.0 % Prothrombin Time 10.5 9.3-11.8 sec Prothrombin Time INR 0.99 0.9-1.15 Activated Partial Thromboplast Time 29.9 24.5-34.5 SEC Sodium Level 140 136-145 mmol/L Potassium Level 4.3 3.5-5.1 mmol/L Chloride Level 108 H 98-107 mmol/L Carbon Dioxide Level 24 20-31 mmol/L Anion Gap 8 5-15 Blood Urea Nitrogen 8 L 9-23 mg/dL Creatinine 0.80 0.550-1.02 mg/dL Glomerular Filtration Rate Calc 103 >90 mL/min BUN/Creatinine Ratio 10.0 10.0-20.0 Serum Glucose 82 74-106 mg/dL Lactic Acid Level 1.5 0.4-2.0 mmol/L Calcium Level 10.6 H 8.7-10.4 mg/dL Magnesium Level 1.9 1.6-2.6 mg/dL Total Bilirubin 0.4 0.2-1.0 mg/dL Aspartate Amino Transferase (AST) 24 13-40 U/L Alanine Aminotransferase (ALT) 40 7-40 U/L Alkaline Phosphatase 103 46-116 U/L B-Type Natriuretic Peptide 6.80 0-100 pg/mL Total Protein 7.7 5.7-8.2 g/dL Albumin 5.2 H 3.2-4.8 g/dL Thyroid Stimulating Hormone (TSH) 0.84 0.55-4.78 uIU/mL Current Medications Medications (Trade) Dose Ordered Sig/Stuart Route Start Time Stop Time Status Last Admin Ondansetron HCl (Zofran) 4 mg ONCE ONCE IV 12/16/24 16:45 12/16/24 16:46 DC 12/16/24 17:12 Hydromorphone HCl (Dilaudid Innjection) 0.25 mg ONCE ONCE IV 12/16/24 20:30 12/16/24 20:31 DC 12/16/24 20:34 Time of 1ST Reevaluation: 20:56 Reevaluation 1ST: Unchanged Patient Education/Counseling: Diagnosis, Treatment, Prognosis Family Education/Counseling: Diagnosis, Treatment, Prognosis Departure 1 Departure Time of Disposition: 20:56 Impression: Primary Impression: Sepsis Disposition: 09 ADMITTED INPATIENT Condition: Serious Additional Instructions: Leukocytosis and tachycardia. No PE, aortic disection.. rule out infective endocarditis Critical Care Note Critical Care Time?: No Stability Stability form required: No Heart Score Heart Score: Heart Score Response (Comments) Value History N/A 0 EKG N/A 0 Age N/A 0 Risk Factors N/A 0 Troponin N/A 0 Total 0 LEONIDAS DAVIES RESIDENT Dec 16, 2024 17:01
[2024-12-16] MEDS: ONDANSETRON HCL 4 MG/2 ML VIAL IV ONE (17:12)
[2024-12-16 17:55] LABS: Urine Bacteria None Seen /hpf (None Seen)
[2024-12-16 18:08] LABS: Urine Blood TRACE /uL (Negative); Urine Clarity Clear (Clear); Urine Color Yellow (Yellow); Urine Mucus FEW (None Seen); Urine Protein, UAD TRACE (Negative); Urine Specific Gravity 1.022 (1.001-1.035); Urine Squamous Epithelial Cell FEW /hpf (<5); Urine Urobilinogen Normal (Negative); Urine WBC < 1 /HPF (0-5)
[2024-12-16 18:19] LABS: Cannabinoid Screen, Urine Pos (NEGATIVE)
[2024-12-16 18:21] LABS: Alkaline Phosphatase 103 U/L (46-116); Anion Gap 8 (5-15); Aspartate Aminotransferase 24 U/L (13-40); Carbon Dioxide 24 mmol/L (20-31); Glucose 82 mg/dL (74-106); Magnesium 1.9 mg/dL (1.6-2.6); Potassium 4.3 mmol/L (3.5-5.1); Sodium 140 mmol/L (136-145)
[2024-12-16 18:22] LABS: Bilirubin, Total 0.4 mg/dL (0.2-1.0); Total Protein 7.7 g/dL (5.7-8.2)
[2024-12-16 18:23] LABS: INR 0.99 (0.9-1.15); Partial Thromboplastin Time 29.9 SEC (24.5-34.5); Prothrombin Time 10.5 sec (9.3-11.8)
[2024-12-16 18:25] LABS: Amphetamine Screen, Urine Neg (NEGATIVE); Barbiturate Scree,Urine Neg (NEGATIVE); Benzodiazephine Screen, Urine Neg (NEGATIVE); Cocaine Screen, Urine Neg (NEGATIVE); Opiate Scree,Urine Neg (NEGATIVE); Phencyclidine Screen, Urine Neg (NEGATIVE)
[2024-12-16 18:25] LABS: Alanine Aminotransferase 40 U/L (7-40); Albumin 5.2 g/dL (3.2-4.8); Blood Urea Nitrogen 8 mg/dL (9-23); Calcium 10.6 mg/dL (8.7-10.4); Chloride 108 mmol/L (98-107)
--- NOTE | 2024-12-16 18:42 | DVH ---
EXAMINATION: AP portable chest radiograph CLINICAL HISTORY: Chest pain COMPARISON: XY CHEST XRAY 1 VIEW on DOS: 11/08/24 FINDINGS: No dominant consolidation. The costophrenic angles appear clear. No sizable pleural effusions or pne umothorax identified. The cardiomediastinal silhouette appears within normal limits given technique. IMPRESSION: No acute cardiopulmonary findings as visualized.
[2024-12-16 18:47] LABS: Basophils # (auto) 0 10 ^3/uL (0-0.2); Basophils % (auto) 0.2 % (0.0-2.0); Eosinophils # (auto) 0 10 ^3/uL (0-0.8); Eosinophils % (auto) 0.1 % (0.0-7.0); Hematocrit 49.9 % (36.0-46.0); Lymphocytes # (auto) 2.6 10 ^3/uL (0.4-5.4); Lymphocytes % (auto) 18.1 % (10.0-50.0); Mean Corpuscular Hemoglobin 32.2 pg (28.0-32.0); Mean Corpuscular Volume 94.5 fL (80.0-100.0); Monocytes # (auto) 0.7 10 ^3/uL (0-1.3); Monocytes % (auto) 5.2 % (0.0-12.0); Neutrophils # (auto) 10.9 10 ^3/uL (1.6-8.6); Neutrophils % (auto) 76.4 % (37.0-80.0); Platelet Count (auto) 417 10^3/uL (140-450); Red Blood Cells 5.28 10^6/uL (4.0-5.20); Red Cell Distribution Width 13.6 % (11.8-14.3); White Blood Cell 14.2 10^3/uL (4.4-10.8)
[2024-12-16] MEDS: IOHEXOL 350 MG/ML 100ML IJ ONE (18:51)
--- NOTE | 2024-12-16 19:17 | ECG ---
[facility] Test Date: 2024-12-16 Test Time: 16:19:16 Pat Name: IZA BAILEY Department: ED Room: Gender: F Production Broacher: JOSEFA : 1995 Requested By: EMERGENCY EMERGENCY Order Number: [id number] Reading MD: Measurements Intervals [place] Rate: 96 P: 77 [place]: 120 QRS: 68 QRSD: 81 T: 54 QT: 336 QTc: 425 Interpretive Statements Sinus rhythm Probable left atrial enlargement Please click the below link to view image of tracing.
--- NOTE | 2024-12-16 19:27 | DVH ---
EXAM: CT CT ANGIO CHEST CONTRAST History: Rule out PE and aortic disection Comparison Study: None available TECHNIQUE: A digital liaison inspection laboratory assistant image was obtained. During the uneventful, intravenous administration of c ontrast material, multislice data acquisition was obtained through the chest. 3-D postprocessing is performed by technologist including MIP imaging Radiation Dose : CTDI vol 23.68 mGy, DLP 216.83 mGy*cm. Findings: Lungs: The lungs are clear. Pleura: Unremarkable Heart/Great vessels: The visualized heart is unremarkable. No cardiomegaly or pericardial effusion. N o pulmonary embolism, aneurysm, or dissection. Mediastinum: Unremarkable Soft tissues/Bones: Unremarkable The partially visualized upper abdomen is within normal limits. Impression: 1. No evidence of a pulmonary embolism, aneurysm, or dissection.
[2024-12-16 20:02] VITALS: PULSE 110; RESP 20; O2SAT 98
[2024-12-16] MEDS: HYDROMORPHONE HCL 1 MG/ML INJ IV ONE (20:34)
[2024-12-16] MEDS ORDERED: VANCOMYCIN PER PHARMACY 0 MG IV SCH (21:00)
[2024-12-16] MEDS: cefTRIAXone 1GM/50ML D5W 50 ML IV ONE (21:05)
--- NOTE | 2024-12-16 23:30 | DVHHPRES ---
History of Present Illness Resident Creating Document: WILMER DUARTE RESDIENT History of Present Illness The patient is a 29-year-old female with a past medical history described below, came to the ED with chief complaint chest and back pain. Per patient, she has left-sided chest discomfort, constant, 7/10 since 1 day. She also reports cough, shortness of breaths, nausea, vomiting, clammy and cold hands, and urinary incontinence. Patient denies abdominal pain, any recent bowel habit changes, sick contact or recent travel. PMHx: IBS, Maryan-Danlos syndrome, narcolepsy, degenerative disc disorder, osteoarthritis of the low back and neck, stress urinary incontinence, pelvic floor dysfunction, migraine, ADHD, pulmonary embolism( August 2023 ) Family history: Marfan syndrome in father Social history: Patient uses marijuana for pain relief both oral and smoking, denies alcohol, and other illicit drug use. Home medication: Eliquis 5 mg b.i.d., guanfacine 4mg daily, progesterone 5mg daily, nurtec, Zofran p.r.n., fluvoxamine 200 mg daily, and vitamin supplement Allergic history: Adhesive, Buspirone, diphenhydramine, metronidazole, morphine, oxcarbazepine, oxycodone Review of Systems Review of Systems General: patient denies fever, fatigue, weaknes, sweating, any recent changes in appetite and weight HEENT: Reports dizziness Cardiovascular: Post chest pain Respiratory: Reports cough, shortness of breaths Gastrointestinal: Denies nausea, vomiting, dysphagia, odynophagia, heartburn, abdominal pain, flatulence, bloating, diarrhea, constipation, change in stool, or blood in stool. Genitourinary: No dysuria, hematuria, discharge, frequency, urgency, nocturia, incontinence, and urinary retention. Endocrine: No heat or cold intolerance, polydipsia, polyuria, and polyphagia. Neurological: No dizziness, extremity weakness and numbness, tremors, gait disturbance, seizures, and memory impairment. Psychiatric: Denies depression, anxiety,or insomnia. Musculoskeletal: Reports back pain Skin: No rashes, itching, skin lesion, changes in hair, nail, skin texture and breast. Hematologic/Lymphatic: Denies easy bruising, bleeding tendencies, or lymph node enlargement. Allergies: Coded Allergies: Brexpiprazole (Verified Allergy, Unknown, 06/13/24) Buspirone (Verified Allergy, Unknown, 06/13/24) Diphenhydramine (Verified Allergy, Unknown, 06/13/24) Ketorolac (Verified Allergy, Unknown, 11/09/24) Metronidazole (Verified Allergy, Unknown, 06/13/24) Morphine (Verified Allergy, Unknown, 06/13/24) Oxcarbazepine (Verified Allergy, Unknown, 06/13/24) Oxycodone (Verified Allergy, Unknown, 06/13/24) Uncoded Allergies: ADHESIVE (Allergy, Unknown, 06/13/24) Medications Current Medications Medications Dose Ordered Sig/Stuart Route Start Time Stop Time Status Last Admin Dose Admin Ceftriaxone Sodium 50 ml @ 100 mls/hr DAILY@09 IV 12/17/24 09:00 Vancomycin HCl 0 ml @ 0 mls/hr UD IV 12/16/24 21:00 UNV Enoxaparin Sodium 60 mg Q12HR SC 12/17/24 10:00 UNV Patient Own Medication 1 DAILY PO 12/17/24 10:00 UNV Exam Vital Signs Vital Signs Date Time Temp Pulse Resp B/P (MAP) Pulse Ox O2 Delivery O2 Flow Rate FiO2 12/16/24 23:12 82 12/16/24 21:04 20 148/104 12/16/24 20:02 98 Room Air* 0 21 12/16/24 19:45 99.2 99.2 Exam General Appearance: Alert, Oriented X3, Cooperative, No acute distress HEENT: Atraumatic, PERRLA, EOMI, Mucous membrane moist/pink Respiratory: Clear to auscultation, Normal air movement Cardiovascular: Regular rate, Normal S1, Normal S2, No murmurs, no chest wall tenderness Abdominal: Normal bowel sounds, Soft, No tenderness, No hepatospenomegaly, No masses Extremities: No clubbing, No cyanosis, No edema, Normal pulses, No tenderness/swelling Skin: No rashes, No breakdown, No significant lesion Neuro: Normal gait, Normal speech, Strength at 5/5 X4 ext, Normal tone, Sensation intact, Cranial nerves 3-12 NL, Reflexes 2+ Psych/Mental Status: Mental status NL, Mood NL Labs/Xrays Labs Test 12/16/24 20:30 12/16/24 17:53 1/31/25 17:35 Range/Units Troponin I High Sensitivity < 3 L </=34 ng/L Urine Color Yellow Yellow Urine Clarity Clear Clear Urine pH 7.0 5.0-9.0 Urine Specific [place] 1.022 1.001-1.035 Urine Protein Trace H Negative Urine Ketones Negative Negative Urine Blood Trace H Negative /uL Urine Nitrite Negative Negative Urine Bilirubin Negative Negative Urine Urobilinogen Normal Negative mg/dL Urine Leukocyte Esterase Negative Negative /uL Urine RBC 10 0 - 4 /hpf Urine Microscopic WBC < 1 0-5 /HPF Urine Squamous Epithelial Cells Few <5 /hpf Urine Bacteria None seen None Seen /hpf Urine Mucus Few None Seen Urine Glucose Normal Normal mg/dL Urine Test Negative Negative Urine Opiates Screen Neg NEGATIVE Urine Fentanyl Screen Neg NEGATIVE Urine Barbiturates Screen Neg NEGATIVE Urine Phencyclidine Screen Neg NEGATIVE Urine Amphetamines Screen Neg NEGATIVE Urine Benzodiazepines Screen Neg NEGATIVE Urine Cocaine Screen Neg NEGATIVE Urine Cannabinoids Screen Pos NEGATIVE White Blood Count 14.2 H 4.4-10.8 10^3/uL Red Blood Count 5.28 H 4.0-5.20 10^6/uL Hemoglobin 17.0 H 12.2-16.2 g/dL Hematocrit 49.9 H 36.0-46.0 % Mean Corpuscular Volume 94.5 80.0-100.0 fL Mean Corpuscular Hemoglobin 32.2 H 28.0-32.0 pg Mean Corpuscular Hemoglobin Concent 34.0 32.0-36.0 g/dL Red Cell Distribution Width 13.6 11.8-14.3 % Platelet Count 417 140-450 10^3/uL Mean Platelet Volume 7.4 6.9-10.8 fL Neutrophils (%) (Auto) 76.4 37.0-80.0 % Lymphocytes (%) (Auto) 18.1 10.0-50.0 % Monocytes (%) (Auto) 5.2 0.0-12.0 % Eosinophils (%) (Auto) 0.1 0.0-7.0 % Basophils (%) (Auto) 0.2 0.0-2.0 % Neutrophils # (Auto) 10.9 H 1.6-8.6 10 ^3/uL Lymphocytes # (Auto) 2.6 0.4-5.4 10 ^3/uL Monocytes # (Auto) 0.7 0-1.3 10 ^3/uL Eosinophils # (Auto) 0 0-0.8 10 ^3/uL Basophils # (Auto) 0 0-0.2 10 ^3/uL Nucleated Red Blood Cells 0.0 % Prothrombin Time 10.5 9.3-11.8 sec Prothrombin Time INR 0.99 0.9-1.15 Activated Partial Thromboplast Time 29.9 24.5-34.5 SEC Sodium Level 140 136-145 mmol/L Potassium Level 4.3 3.5-5.1 mmol/L Chloride Level 108 H 98-107 mmol/L Carbon Dioxide Level 24 20-31 mmol/L Anion Gap 8 5-15 Blood Urea Nitrogen 8 L 9-23 mg/dL Creatinine 0.80 0.550-1.02 mg/dL Glomerular Filtration Rate Calc 103 >90 mL/min BUN/Creatinine Ratio 10.0 10.0-20.0 Serum Glucose 82 74-106 mg/dL Lactic Acid Level 1.5 0.4-2.0 mmol/L Calcium Level 10.6 H 8.7-10.4 mg/dL Magnesium Level 1.9 1.6-2.6 mg/dL Total Bilirubin 0.4 0.2-1.0 mg/dL Aspartate Amino Transferase (AST) 24 13-40 U/L Alanine Aminotransferase (ALT) 40 7-40 U/L Alkaline Phosphatase 103 46-116 U/L B-Type Natriuretic Peptide 6.80 0-100 pg/mL Total Protein 7.7 5.7-8.2 g/dL Albumin 5.2 H 3.2-4.8 g/dL Thyroid Stimulating Hormone (TSH) 0.84 0.55-4.78 uIU/mL Assessment/Plan Assessment/Plan Sepsis, likely due to pneumonia Pneumonia, likely due to Gram-positive Gram-negative bacteria/viral Check COVID-19, MRSA and flu Empiric antibiotic, azithromycin and Rocephin Tylenol IV fluid History of Maryan-Danlos syndrome History of irritable bowel syndrome History of degenerative disc disorder and osteoarthritis of low back and neck History of stress urinary continence, and pelvic floor dysfunction Dysmenorrhea, continue progesterone History of migraine, and ADHD , continue guanfacine History of OCD, continue flovaxamine History of pulmonary embolism in 2022, continue Eliquis 5 mg b.i.d. Cannabinoid use disorder Ruled out pulmonary emboli CT angio shows no PE DIET: Regular DVT PROPHYLAXIS: Continue Eliquis CODE STATUS: Goal of care discussed for more than 21 minutes, full code DISPOSITION: Med/surge Patient's status and paln discussed with patient. Case discussed with Dr. Mary. Plan discussed with: Patient, Other (RN) My Orders Orders - WILMER DUARTE RESDIENT Procedure Category Date Status Time Admit ADMIT 12/16/24 Transmitted 23:22 Stat Ekg For Chest JOSE 12/16/24 In Process Pain 23:22 Notify Md Of Changes JOSE 12/16/24 In Process From [place] 23:22 Date of Service: Dec 16, 2024 Billing Provider: RYAN LEON MD Common Visit Codes: [id number] INP/OBS CARE (HIGH) WILMER DUARTE RESDIENT Dec 16, 2024 23:30 RYAN LEON MD Dec 21, 2024 16:05
[2024-12-17] MEDS: HYDROmorphone HCL 2 MG/ML VL/or syr IV ONE ×3 (02:15→21:18)
[2024-12-17] MEDS: ENOXAPARIN SOD 100 MG/1 ML SYRINGE SC ONE (02:45)
[2024-12-17] MEDS: ONDANSETRON HCL 4 MG/2 ML VIAL IV PRN (03:30)
[2024-12-17] MEDS: SODIUM CHLORIDE 0.9% 1,000 ML IV ONE ×2 (03:45→10:31)
[2024-12-17 03:59] LABS: Basophils # (auto) 0 10 ^3/uL (0-0.2); Basophils % (auto) 0.3 % (0.0-2.0); Eosinophils # (auto) 0.2 10 ^3/uL (0-0.8); Eosinophils % (auto) 1.7 % (0.0-7.0); Hematocrit 44.3 % (36.0-46.0); Hemoglobin 15.1 g/dL (12.2-16.2); Lymphocytes # (auto) 4.6 10 ^3/uL (0.4-5.4); Mean Corpuscular Hemoglobin 32.4 pg (28.0-32.0); Mean Corpuscular Hgb Conc. 34.2 g/dL (32.0-36.0); Mean Corpuscular Volume 94.9 fL (80.0-100.0); Monocytes # (auto) 0.7 10 ^3/uL (0-1.3); Monocytes % (auto) 6.6 % (0.0-12.0); Neutrophils # (auto) 5.7 10 ^3/uL (1.6-8.6); Neutrophils % (auto) 50.4 % (37.0-80.0); Nucleated Red Blood Cells % 0.1 %; Platelet Count (auto) 346 10^3/uL (140-450); Red Blood Cells 4.67 10^6/uL (4.0-5.20); Red Cell Distribution Width 13.2 % (11.8-14.3); White Blood Cell 11.3 10^3/uL (4.4-10.8)
[2024-12-17] MEDS: AZITHROMYCIN 500MG/ 250ML 250 ML IV SCH (04:00)
[2024-12-17 04:18] LABS: Alanine Aminotransferase 32 U/L (7-40); Albumin 4.5 g/dL (3.2-4.8); Alkaline Phosphatase 85 U/L (46-116); Anion Gap 9 (5-15); Aspartate Aminotransferase 19 U/L (13-40); BUN/Creatinine Ratio 9.1 (10.0-20.0); Calcium 9.7 mg/dL (8.7-10.4); Carbon Dioxide 23 mmol/L (20-31); Glucose 78 mg/dL (74-106); Potassium 3.7 mmol/L (3.5-5.1); Sodium 142 mmol/L (136-145)
[2024-12-17 04:19] LABS: Bilirubin, Total 0.5 mg/dL (0.2-1.0); Total Protein 6.9 g/dL (5.7-8.2)
[2024-12-17 04:24] LABS: Blood Urea Nitrogen 8 mg/dL (9-23); Chloride 110 mmol/L (98-107)
[2024-12-17] MEDS ORDERED: PATIENTS OWN MEDICATION PO SCH (10:00)
[2024-12-17] MEDS: FLUVOXAMINE 200 MG PO SCH (10:00)
[2024-12-17] MEDS ORDERED: ENOXAPARIN SOD 100 MG/1 ML SYRINGE SC SCH (10:00)
[2024-12-17] MEDS: GUANFACINE 4 MG PO SCH (10:00)
[2024-12-17] MEDS: ACETAMINOPHEN 325 MG TAB PO PRN (10:31)
[2024-12-17] MEDS: cefTRIAXone 1GM/50ML D5W 50 ML IV SCH (10:31)
[2024-12-17] MEDS: APIXABAN 5 MG TAB PO SCH (10:32)
[2024-12-17 13:56] LABS: COVID19 ANTIGEN SOFIA FIA NEGATIVE (NEGATIVE)
[2024-12-17 13:58] LABS: Rapid Influenza A Negative (Negative); Rapid Influenza B Negative (Negative)
[2024-12-17 14:36] VITALS: BP 135/91; PULSE 99; RESP 17; TEMP 98.8; O2SAT 99
[2024-12-17 16:28] VITALS: BP 135/91; PULSE 99; RESP 17; TEMP 98.8; O2SAT 99
--- NOTE | 2024-12-17 16:52 | DVHPNRES ---
Progress Note Date Seen: Dec 17, 2024 Resident Creating Document: TODD DONIS RESIDENT Has the PT tested + for MRSA If YES, has PT been informed?: No Medical Necessity Reason Pt with a Central, PICC or Fol: No Subjective Review of Systems The patient is a 29-year-old female with a past medical history of Maryan-Danlos syndrome, IBS, degenerative disc disorder, stress urinary incontinence, pelvic floor dysfunction, migraine, ADHD, pulmonary embolism on August of 2023. The patient presented to the ED with chief complaint chest and back pain. On admission the patient described a left-sided chest discomfort described as a pressure type of pain rated as a 5/10 on the pain scale. The patient also reported increased blood pressure at home associated with shortness of breaths, chills, cold sweaty hands and arm pits. The patient also reported nausea and vomiting. The patient admitted that she had these type of episodes before. Initial labs showed a WBC of 14.2 and due to the respiratory distress we started the patient on IV ceftriaxone and azithromycin for possible pneumonia and admitted the patient for further assessment and management. Patient seen and examined at bedside. The patient is alert and oriented in person, place and time. The patient seems to be anxious, the patient still reporting chest discomfort associated with very mild shortness of breath but the patient is saturating 98% on room air. Initial chest x-ray was grossly unremarkable and CT angiogram of the chest showed no evidence of pulmonary embolism or any intrathoracic abnormality. Due to the previous history of pulmonary embolism we continue her home medication apixaban 5 mg b.i.d. as well as her other home medications. EKG was evaluated which was showing sinus rhythm with no significant ST segment abnormalities or T-wave inversions. Troponins came back negative. The patient was stating that the only pain medication that functions for her is IV Dilaudid. We will place the patient on telemetry overnight to review the strip in the morning. If there are no acute events of tachyarrhythmias. ROS Constitutional: Denies weight loss, fever and chills. HEENT: Denies changes in vision and hearing. Respiratory: Reports mild shortness of breath. Denies cough Cardiovascular: Reports chest discomfort on the left side of the chest described as a pressure type of pain. Denies palpitations GI: Denies abdominal pain, nausea, vomiting and diarrhea. : Denies dysuria and urinary frequency. Musculoskeletal: Denies myalgias and joint pain Skin: Denies rash and pruritus. Neurological: Denies dizziness, headache, vision or hearing problems Objective vital signs Vital Sign Date Time Temp Pulse Resp B/P (MAP) Pulse Ox O2 Delivery O2 Flow Rate FiO2 12/17/24 16:28 98.8 99 17 135/91 (106) 99 98.8 12/17/24 14:36 Room Air* 0 21 Total Intake and Output 12/16/24 12/16/24 12/17/24 15:00 23:00 07:00 Intake Total 50 ml Balance 50 ml medications Current Medications Medications Dose Ordered Sig/Stuart Route Start Time Stop Time Status Last Admin Dose Admin Ceftriaxone Sodium 50 ml @ 100 mls/hr DAILY@09 IV 12/17/24 09:00 12/17/24 10:31 100 MLS/HR Ondansetron HCl 4 mg Q6HPRN PRN IV 12/17/24 01:15 12/17/24 10:32 4 MG Azithromycin 250 ml @ 125 mls/hr DAILY IV 12/17/24 04:00 Acetaminophen 650 mg Q4HP PRN PO 12/17/24 03:45 12/17/24 10:31 650 MG Apixaban 5 mg BID PO 12/17/24 10:00 12/17/24 10:32 5 MG Patient Own Medication 1 DAILY PO 12/17/24 10:00 Patient Own Medication 1 DAILY PRN PO 12/17/24 10:00 Patient Own Medication 1 DAILY PO 12/17/24 10:00 Examination Physical Examination General: Patient alert and oriented in person, place and time. Patient following commands. HEENT: Normocephalic, atraumatic, moist mucous membranes Respiratory/pulmonary: Clear lungs bilaterally, no associated crackles or wheezes. Cardiovascular: Normal heart sounds S1 and S2 with no associated murmurs Abdomen: Abdomen nondistended, there is no pain to palpation in any of the abdominal quadrants, no palpable masses. Extremities: There is no peripheral edema present at the lower extremities. Peripheral Pulses: 3+ Radial (R). 3+ Radial (L). 3+ Dorsalis pedis (R). 3+ Dorsalis pedis(L) Skin: No rashes or pruritus, there is no sacral edema present at this time. Neurological: Intact cranial nerves with no focal neurologic deficits laboratory and microbiology Laboratory Tests 12/17/24 03:44 Test 12/17/24 03:44 Range/Units Serum Glucose 78 74-106 mg/dL Problem List/Assessment/Plan Problem List/Assessment/Plan Assessment/Plan Sepsis likely due to gram +/- bacterial pneumonia -initial chest x-ray showed no evidence of clear consolidations at this time. -CT angio of the chest showed no evidence of pulmonary embolism and lung parenchyma is were grossly clear. -COVID-19 came back negative -influenza a and B came back negative -start IV ceftriaxone -start IV azithromycin -stop IV fluids at this time. Pulmonary embolism ruled out -CT angio of the chest showed no evidence of pulmonary embolism and lung parenchyma is were grossly clear. R/O tachyarrhythmias -we will place the patient on telemetry to analyze strips overnight and try to detect any event of tachyarrhythmia. -EKG showed sinus rhythm with no ST segment elevation or depression or any T- wave abnormality. -troponins were negative. History of pulmonary embolism in August of 2023 -continue Eliquis 5 mg b.i.d. Drug abuser -urine drug screen was positive for cannabinoids -patient states that the only pain medication that works his IV Dilaudid Dysmenorrhea -continue progesterone 5 mg daily History of degenerative disc disorder and osteoarthritis of lower back and neck -patient states that the only pain medication that works his IV Dilaudid History of Maryan-Danlos syndrome History of irritable bowel syndrome Goals of care discussed with the patient at bedside for >23min, FULL CODE Plan discussed with Dr. Naik Plan discussed with: Patient My Orders My Orders Orders - TODD DONIS Procedure Category Date Status Time * Cardiology Consult CONS 12/17/24 Transmitted 07:11 Date of Service: Dec 17, 2024 Billing Provider: JAELYN NAIK MD Common Visit Codes: [id number] INP/OBS CARE(HIGH) TODD DONIS RESIDENT Dec 17, 2024 16:52 JAELYN NAIK MD Jan 04, 2025 11:49
[2024-12-17 20:00] VITALS: PULSE 78; RESP 18; O2SAT 96
[2024-12-17] MEDS ORDERED: PROG100C23 PO (20:51)
[2024-12-17] MEDS ORDERED: APIX5TAB PO (20:51)
[2024-12-17 21:00] VITALS: BP_SYST 118; BP_SYST 154; BP_DIAS 87; BP_DIAS 92; PULSE 79; RESP 18; TEMP 98.6; O2SAT 100
[2024-12-18 01:00] VITALS: BP 137/89; PULSE 105; RESP 18; TEMP 98.4; O2SAT 99
[2024-12-18 05:00] VITALS: BP 121/74; PULSE 85; RESP 18; TEMP 98.7; O2SAT 95
[2024-12-18 07:01] LABS: Alanine Aminotransferase 28 U/L (7-40); Alkaline Phosphatase 90 U/L (46-116); Anion Gap 10 (5-15); Aspartate Aminotransferase 18 U/L (13-40); Calcium 10.2 mg/dL (8.7-10.4); Carbon Dioxide 25 mmol/L (20-31); Glucose 76 mg/dL (74-106); Potassium 4.1 mmol/L (3.5-5.1); Sodium 142 mmol/L (136-145); Total Protein 7.4 g/dL (5.7-8.2)
[2024-12-18 07:03] LABS: Albumin 5.1 g/dL (3.2-4.8); BUN/Creatinine Ratio 5.6 (10.0-20.0); Blood Urea Nitrogen < 5 mg/dL (9-23); Chloride 107 mmol/L (98-107)
[2024-12-18 07:09] LABS: Basophils # (auto) 0 10 ^3/uL (0-0.2); Basophils % (auto) 0.2 % (0.0-2.0); Eosinophils # (auto) 0.1 10 ^3/uL (0-0.8); Eosinophils % (auto) 1.3 % (0.0-7.0); Hematocrit 46.5 % (36.0-46.0); Hemoglobin 15.8 g/dL (12.2-16.2); Lymphocytes # (auto) 3.8 10 ^3/uL (0.4-5.4); Lymphocytes % (auto) 37.4 % (10.0-50.0); Mean Corpuscular Hemoglobin 32.3 pg (28.0-32.0); Monocytes # (auto) 0.7 10 ^3/uL (0-1.3); Monocytes % (auto) 6.9 % (0.0-12.0); Neutrophils # (auto) 5.5 10 ^3/uL (1.6-8.6); Neutrophils % (auto) 54.2 % (37.0-80.0); Platelet Count (auto) 365 10^3/uL (140-450); Red Cell Distribution Width 13.3 % (11.8-14.3); White Blood Cell 10.2 10^3/uL (4.4-10.8)
[2024-12-18 08:00] VITALS: PULSE 85
[2024-12-18 09:22] VITALS: BP 130/91; PULSE 98; RESP 15; TEMP 99.1; O2SAT 99
[2024-12-18 13:00] VITALS: BP 127/92; PULSE 99; RESP 15; TEMP 98.8; O2SAT 97
[2024-12-18] MEDS ORDERED: DOXY1CAP57 PO (13:05)
[2024-12-18] MEDS: HYDROmorphone HCL 2 MG/ML VL/or syr IV ONE (14:18)
[2024-12-18 15:04] VITALS: BP 127/92; PULSE 99; RESP 15; TEMP 98.8; O2SAT 97
--- NOTE | 2024-12-18 16:18 | DVHDSRES ---
Discharge Summary Date of Admission Resident Creating Document: GREGORIO ONTIVEROS RESIDENT Dec 16, 2024 at 23:22 Date of Discharge: Dec 18, 2024 Admitting Diagnosis Sepsis likely due to gram +/- bacterial pneumonia Wounds: No wound was present. Labs/Diagnostic Data: Laboratory Results Test 12/18/24 05:43 12/17/24 13:51 12/17/24 03:32 12/17/24 00:00 White Blood Count 10.2 10^3/uL (4.4-10.8) Red Blood Count 4.90 10^6/uL (4.0-5.20) Hemoglobin 15.8 g/dL (12.2-16.2) Hematocrit 46.5 % (36.0-46.0) Mean Corpuscular Volume 95.0 fL (80.0-100.0) Mean Corpuscular Hemoglobin 32.3 pg (28.0-32.0) Mean Corpuscular Hemoglobin Concent 34.0 g/dL (32.0-36.0) Red Cell Distribution Width 13.3 % (11.8-14.3) Platelet Count 365 10^3/uL (140-450) Mean Platelet Volume 7.2 fL (6.9-10.8) Neutrophils (%) (Auto) 54.2 % (37.0-80.0) Lymphocytes (%) (Auto) 37.4 % (10.0-50.0) Monocytes (%) (Auto) 6.9 % (0.0-12.0) Eosinophils (%) (Auto) 1.3 % (0.0-7.0) Basophils (%) (Auto) 0.2 % (0.0-2.0) Neutrophils # (Auto) 5.5 10 ^3/uL (1.6-8.6) Lymphocytes # (Auto) 3.8 10 ^3/uL (0.4-5.4) Monocytes # (Auto) 0.7 10 ^3/uL (0-1.3) Eosinophils # (Auto) 0.1 10 ^3/uL (0-0.8) Basophils # (Auto) 0 10 ^3/uL (0-0.2) Nucleated Red Blood Cells 0.0 % Sodium Level 142 mmol/L (136-145) Potassium Level 4.1 mmol/L (3.5-5.1) Chloride Level 107 mmol/L (98-107) Carbon Dioxide Level 25 mmol/L (20-31) Anion Gap 10 (5-15) Blood Urea Nitrogen < 5 mg/dL (9-23) Creatinine 0.90 mg/dL (0.550-1.02) Glomerular Filtration Rate Calc 89 mL/min (>90) BUN/Creatinine Ratio 5.6 (10.0-20.0) Serum Glucose 76 mg/dL (74-106) Calcium Level 10.2 mg/dL (8.7-10.4) Magnesium Level 2.0 mg/dL (1.6-2.6) Total Bilirubin 1.0 mg/dL (0.2-1.0) Aspartate Amino Transferase (AST) 18 U/L (13-40) Alanine Aminotransferase (ALT) 28 U/L (7-40) Alkaline Phosphatase 90 U/L (46-116) Total Protein 7.4 g/dL (5.7-8.2) Albumin 5.1 g/dL (3.2-4.8) Lactic Acid Level 0.8 mmol/L (0.4-2.0) Influenza Type A Antigen Negative (Negative) Influenza Type B Antigen Negative (Negative) SARS-CoV-2 Antigen (Rapid) Negative (NEGATIVE) Test 12/16/24 20:30 12/16/24 17:53 12/16/24 17:35 Troponin I High Sensitivity < 3 ng/L (</=34) Urine Color Yellow (Yellow) Urine Clarity Clear (Clear) Urine pH 7.0 (5.0-9.0) Urine Specific [place] 1.022 (1.001-1.035) Urine Protein Trace (Negative) Urine Ketones Negative (Negative) Urine Blood Trace /uL (Negative) Urine Nitrite Negative (Negative) Urine Bilirubin Negative (Negative) Urine Urobilinogen Normal mg/dL (Negative) Urine Leukocyte Esterase Negative /uL (Negative) Urine RBC 10 /hpf (0 - 4) Urine Microscopic WBC < 1 /HPF (0-5) Urine Squamous Epithelial Cells Few /hpf (<5) Urine Bacteria None seen /hpf (None Seen) Urine Mucus Few (None Seen) Urine Glucose Normal mg/dL (Normal) Urine Test Negative (Negative) Urine Opiates Screen Neg (NEGATIVE) Urine Fentanyl Screen Neg (NEGATIVE) Urine Barbiturates Screen Neg (NEGATIVE) Urine Phencyclidine Screen Neg (NEGATIVE) Urine Amphetamines Screen Neg (NEGATIVE) Urine Benzodiazepines Screen Neg (NEGATIVE) Urine Cocaine Screen Neg (NEGATIVE) Urine Cannabinoids Screen Pos (NEGATIVE) Prothrombin Time 10.5 sec (9.3-11.8) Prothrombin Time INR 0.99 (0.9-1.15) Activated Partial Thromboplast Time 29.9 SEC (24.5-34.5) B-Type Natriuretic Peptide 6.80 pg/mL (0-100) Thyroid Stimulating Hormone (TSH) 0.84 uIU/mL (0.55-4.78) Other Laboratory Tests 12/18/24 05:43 Brief Hx & Hospital Course: The patient is a 29-year-old female with a past medical history of Maryan-Danlos syndrome, IBS, degenerative disc disorder, stress urinary incontinence, pelvic floor dysfunction, migraine, ADHD, pulmonary embolism on August of 2023. The patient presented to the ED with chief complaint chest and back pain. On admission the patient described a left-sided chest discomfort described as a pressure type of pain rated as a 5/10 on the pain scale. The patient also reported increased blood pressure at home associated with shortness of breaths, chills, cold sweaty hands and arm pits. The patient also reported nausea and vomiting. The patient admitted that she had these type of episodes before. Initial labs showed a WBC of 14.2 and due to the respiratory distress we started the patient on IV ceftriaxone and azithromycin for possible pneumonia and admitted the patient for further assessment and management. Hospital course: Initially the patient seems to be anxious, the patient still reporting chest discomfort associated with very mild shortness of breath but the patient is saturating 98% on room air. Initial chest x-ray was grossly unremarkable and CT angiogram of the chest showed no evidence of pulmonary embolism or any intrathoracic abnormality. Due to the previous history of pulmonary embolism we continue her home medication apixaban 5 mg b.i.d. as well as her other home medications. EKG was evaluated which was showing sinus rhythm with no significant ST segment abnormalities or T-wave inversions. Troponins came back negative. The patient was stating that the only pain medication that functions for her is IV Dilaudid. We placed the patient on telemetry overnight reviewed the strip in the morning and no acute events of tachyarrhythmias. WBC trends are 14.2>11.2>10.2 and patient was treated for possible pneumonia with IV ceftriaxone 1 g daily and IV azithromycin 500 mg daily. Discharge plan was discussed with the patient and all questions were answered. Patient is being discharged to home. Discharge plan: Disposition: Home Medications: Doxycycline 100 mg, 1 cap b.i.d. for 5 days and continue home medications Follow up: [place] [facility] in 1 week Consults/Reason for consult No consultation was done Operations or Procedures EXAM: CT CT ANGIO CHEST CONTRAST History: Rule out PE and aortic disection Comparison Study: None available TECHNIQUE: A digital lithopone mill worker image was obtained. During the uneventful, intravenous administration of contrast material, multislice data acquisition was obtained through the chest. 3-D postprocessing is performed by technologist including MIP imaging Radiation Dose : CTDI vol 23.68 mGy, DLP 216.83 mGy*cm. Findings: Lungs: The lungs are clear. Pleura: Unremarkable Heart/Great vessels: The visualized heart is unremarkable. No cardiomegaly or pericardial effusion. No pulmonary embolism, aneurysm, or dissection. Mediastinum: Unremarkable Soft tissues/Bones: Unremarkable The partially visualized upper abdomen is within normal limits. Impression: 1. No evidence of a pulmonary embolism, aneurysm, or dissection. EXAM: CT CT ANGIO CHEST CONTRAST History: Rule out PE and aortic disection Comparison Study: None available TECHNIQUE: A digital lithopone mill worker image was obtained. During the uneventful, intravenous administration of contrast material, multislice data acquisition was obtained through the chest. 3-D postprocessing is performed by technologist including MIP imaging Radiation Dose : CTDI vol 23.68 mGy, DLP 216.83 mGy*cm. Findings: Lungs: The lungs are clear. Pleura: Unremarkable Heart/Great vessels: The visualized heart is unremarkable. No cardiomegaly or pericardial effusion. No pulmonary embolism, aneurysm, or dissection. Mediastinum: Unremarkable Soft tissues/Bones: Unremarkable The partially visualized upper abdomen is within normal limits. Impression: 1. No evidence of a pulmonary embolism, aneurysm, or dissection. EXAMINATION: AP portable chest radiograph CLINICAL HISTORY: Chest pain COMPARISON: XY CHEST XRAY 1 VIEW on DOS: 11/08/24 FINDINGS: No dominant consolidation. The costophrenic angles appear clear. No sizable pleural effusions or pneumothorax identified. The cardiomediastinal silhouette appears within normal limits given technique. IMPRESSION: No acute cardiopulmonary findings as visualized. 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 Medications: Doxycycline 100 mg b.i.d for 5 days Discharge Statement: "Patient was advised to return to the ER or call 911 if any headaches, dizziness, shortness of breath, chest pain, abdominal pain, bleeding, fevers, or worsening of medical condition. Patient was counseled about treatment plan, medications, possible side effects, patientverbalized understanding. All questions were answered to the best of my ability. 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
--- NOTE | 2024-12-21 12:24 | ECG ---
[facility] Test Date: 2024-12-16 Test Time: 23:12:35 Pat Name: IZA BAILEY Department: ER Room: [address] [place] [address] 3 Gender: F Brand Ambassador: NAZANIN : 1995 Requested By: EMERGENCY EMERGENCY Order Number: [id number] Reading MD: Vargas Amaya Measurements Intervals [place] Rate: 82 P: 20 AR: 129 QRS: 74 QRSD: 76 T: 59 QT: 370 QTc: 432 Interpretive Statements Sinus rhythm Electronically Signed On 12-21-2024 13:20:04 PST by Vargas Amaya Please click the below link to view image of tracing.
== END 2024-12-18 16:24 | disposition home or self-care (01) | DRG 720 ==
LOC: EDBD 16:21 → ER 16:21 → OVERFLOW 23:22 → TELE-E-ADS 23:22 → EAST 12-17 14:15 → TELE-E-ADS 12-18 08:20
PROVIDERS: ATTEND Internal Medicine Cardiovascular Disease
DX: A41.59 Other Gram-negative sepsis (principal); J15.69 Pneumonia due to other Gram-negative bacteria; J15.9 Unspecified bacterial pneumonia; N94.6 Dysmenorrhea, unspecified; Z20.822 Contact with and (suspected) exposure to COVID-19; G43.909 Migraine, unspecified, not intractable, without status migrainosus; Z82.49 Family history of ischemic heart disease and other diseases of the circulatory system; Z82.79 Family history of other congenital malformations, deformations and chromosomal abnormalities; Z79.899 Other long term (current) drug therapy; Z88.5 Allergy status to narcotic agent; Z88.8 Allergy status to other drugs, medicaments and biological substances
CPT/HCPCS: 36415; 71045; 71275; 80053; 80307; 81001; 81025; 83605; 83735; 83880; 84443; 84484; 85025; 85610; 85730; 87040; 87081; 87426; 87804; 93005; G0378; J2405